=== PATIENT | male | born 1950 | race Caucasian/White ===

== ENCOUNTER 2018-08-13 19:11 | Inpatient (IN) | payer MEDICARE, OTHER ==
[~2018-08-13] VITALS: Ht 175.3 cm; Wt 87.1 kg
--- NOTE | 2018-08-13 19:29 | NUR ---
BIB RA860 & [employer] OFF[employer]ERS, ETOH, VIOLENT, VERBALY ABUSIVE & PLACED ON HOLD. PT IS UNCOOPERATIVE. HE IS AOX3, AMB, VSS, RR EVEN AND UNLABORED. SKIN INTACT AND NO ACUTE DISTRESS NOTED. READY FOR EVAL.
[2018-08-13 20:19] LABS: BASOPHILS # (AUTO) 0.1 /CMM (0.0-0.2); BASOPHILS % (AUTO) 0.7 % (0.0-2.0); EOSINOPHILS % (AUTO) 0.1 % (0.0-6.0); HEMATOCRIT 56 % (39-51); LYMPHOCYTES # (AUTO) 1.3 /CMM (0.8-4.8); LYMPHOCYTES % (AUTO) 15.7 % (20.0-44.0); MEAN CORPUSCULAR HGB CONC 34 g/dl (31.0-36.0); MEAN CORPUSCULAR VOLUME 94 fL (80-96); MONOCYTES # (AUTO) 0.5 /CMM (0.1-1.30); MONOCYTES % (AUTO) 6.6 % (2.0-12.0); NEUTROPHILS # (AUTO) 6.4 /CMM (1.8-8.9); NEUTROPHILS % (AUTO) 76.9 % (43.0-81.0); PLATELET COUNT (AUTO) 243 /CMM (150-450); RED BLOOD CELL COUNT(AUTO) 5.99 MIL/uL (4.5-6.0); WHITE BLOOD COUNT (AUTO) 8.3 K/uL (4.3-11.0)
[2018-08-13 20:20] LABS: HEMOGLOBIN 19.3 g/dL (13.5-17.5)
--- NOTE | 2018-08-13 20:22 | NUR ---
DR HANNA CANCELLED URINE ORDER
[2018-08-13 20:30] LABS: CALCIUM, SERUM 8.9 mg/dL (8.5-10.1); CARBON DIOXIDE 17 mmol/L (21-32); CHLORIDE 104 mmol/L (98-107); CREATININE 0.9 mg/dL (0.6-1.3); GLUCOSE 117 mg/dL (74-106); POTASSIUM 3.5 mmol/L (3.5-5.1); SODIUM SERUM 142 mmol/L (136-145); UREA NITROGEN, BLOOD 10 mg/dL (7-18)
[2018-08-13] MEDS ORDERED: LORAZEPAM 1 MG TABLET PO ONE (20:30)
[2018-08-13] MEDS ORDERED: LORAZEPAM 1 MG TABLET ONE (20:31)
[2018-08-13 20:37] LABS: ALANINE AMINOTRANSFERASE 30 U/L (12-78); ALBUMIN 4.1 g/dL (3.4-5.0); ALCOHOL, BLOOD 322 mg/dL (0-0); ALKALINE PHOSPHATASE 92 U/L (46-116); ASPARTATE AMINOTRANSFERASE 29 U/L (15-37); BILIRUBIN,DIRECT 0.1 mg/dL (0.0-0.2); BILIRUBIN,TOTAL 0.5 mg/dL (0.2-1.0); SALICYLATE 4.6 mg/dL (2.8-20.0); TOTAL PROTEIN, SERUM 7.6 g/dL (6.4-8.2)
[2018-08-13 20:38] LABS: ACETAMINOPHEN < 2 ug/ml (10-30)
[2018-08-13 20:57] LABS: BASOPHILS % (MANUAL) 0 % (0.0-2.0); EOSINOPHILS % (MANUAL) 0 % (0-4); LYMPHOCYTES % (MANUAL) 15 % (16-48); MONOCYTES % (MANUAL) 4 % (0-11.0); NEUTROPHILS % (MANUAL) 79 (42-76)
--- NOTE | 2018-08-13 20:57 | NUR ---
PT'S , DR. MARIAMA BARRIGA, CALLED AND IS SPEAKING TO DR. HANNA.
--- NOTE | 2018-08-13 21:00 | NUR ---
PT CONTINUES TO REMOVE MONITOR DEVICES. UNABLE TO GET VITALS
--- NOTE | 2018-08-13 21:45 | NUR ---
PT SITTING QUIETLY IN BED. NO COMPLAINTS AT THIS TIME. VSS. WILL CONT TO MONITOR.
--- NOTE | 2018-08-13 22:04 | NUR ---
JOSUÉ OSTEOPATHIC RESIDENT AT BEDSIDE FOR EVAL
--- NOTE | 2018-08-13 23:24 | NUR ---
PT IS GOING TO [facility] RM 217, ADMITTING DEDE/JANETT. DX: SI, 7310 - DTS & DTO
--- NOTE | 2018-08-13 23:46 | NUR ---
REPORT GIVEN TO JAMILA ZAVALA FOR 217
[2018-08-14 00:30] VITALS: BP 140/93
--- NOTE | 2018-08-14 00:55 | NUR ---
ADMITTED DROM SO/ER, INITIALLY CAME FROM HOME. CALLED THE POLICE AND WAS BROUGHT TO ER FOR INTOXICATION. PATIENT ADMITTED ON 5150 HOLD FOR DTO/DTS. CAME TO THE UNIT AROUND 0030 VIA GURNEY ACCOMPANIED BY 1 MALE ER STAFF. PLACED PATIENT IN THE ROOM. PATIENT IS CALM, COOPERATIVE, THOUGHT PROCESS INTACT, POOR JUDGEMENT AND POOR INSIGHT. INITIATES INTERACTION, APPROPRIATE. A/O X4. PROVIDES PERTINENT INFORMATIONS. REFUSED FLU AND PNEUMONIA VACCINES, MAKES HIM SICK. PATIENT IS AMBULATORY/STEADY GAIT. GEN. BODY ASSESSMENT DONE/SKIN CLEAR. BELONGINGS WERE INVENTORIED AND CHECKED FOR CONTRABAND. PATIENT IS UNDER THE PSYCHIATRIC CARE OF DR. AGUAYO, MEDICAL CARE OF DR. ERICKSON Mckeon. PATIENT STATED THAT HE IS NOT TAKING ANY REGULAR MEDS AT HOME. BED LOCKED AND PLACED ON LOWEST POSITION FOR SAFETY. WILL CONTINUE TO MONITOR Q 15 MINS. TO MAINTAIN SAFETY.
[2018-08-14] MEDS ORDERED: ZOLPIDEM TARTRATE 5 MG TABLET PO PRN (01:30)
[2018-08-14] MEDS ORDERED: MAG HYDROX/AL HYDROX/SIMETH 30 ML UDC PO PRN (01:30)
[2018-08-14] MEDS ORDERED: MAGNESIUM HYDROXIDE 30 ML UDC PO PRN (01:30)
[2018-08-14] MEDS: LORAZEPAM 0.5 MG TABLET PO PRN ×4 (01:40→22:47)
[2018-08-14] MEDS: ACETAMINOPHEN 325 MG TABLET PO PRN (03:17)
--- NOTE | 2018-08-14 03:18 | NUR ---
C/O PAIN RIGHT RIB AREA, TYLENOL 650 MG TAB PO GIVEN.
[2018-08-14] MEDS ORDERED: GABA-534 PO (06:14)
[2018-08-14] MEDS ORDERED: AMLO5TAB9 PO (06:14)
[2018-08-14] MEDS ORDERED: AMOX500T2 PO (06:14)
[2018-08-14] MEDS ORDERED: MULT1CAP34 PO (06:14)
[2018-08-14] MEDS ORDERED: FOLI1TAB16 PO (06:14)
[2018-08-14] MEDS ORDERED: IBUP-1955 PO (06:14)
[2018-08-14] MEDS ORDERED: TRAZ-182 PO (06:14)
[2018-08-14] MEDS ORDERED: FLUO-120 PO (06:14)
[2018-08-14] MEDS ORDERED: PROP20TA7 PO (06:14)
--- NOTE | 2018-08-14 06:25 | NUR ---
Verified with patient list of medications in the system, discussed all meds, patient claimed that he does not take any medication on the list shown to him.
[2018-08-14 07:23] LABS: CREATININE 1.1 mg/dL (0.6-1.3)
[2018-08-14 08:00] VITALS: BP 148/104
--- NOTE | 2018-08-14 08:43 | NUR ---
rn note: patient reported of being anxious. prn ativan given.
[2018-08-14] MEDS ORDERED: CHLORDIAZEPOXIDE HCL 25 MG CAPSULE PO PRN (15:00)
[2018-08-14] MEDS ORDERED: CHLORDIAZEPOXIDE HCL 25 MG CAPSULE PO SCH (15:00)
--- NOTE | 2018-08-14 15:00 | NUR ---
Initial Discharge Instructions: Patient currently lives at home with his [[address] [place] [address]; [phone]]. Per pt, he will "go wherever my says I need to go." SW explored options of sober livings vs. residential treatment for the patient, and he seemed agreeable to this plan. Spoke with pt's , Nighat Thurston ([phone]) who reports that the patient cannot return home, as she is filing a restraining order against him. Per pt and , pt has long history of ETOH abuse, and will require rehabilitation upon discharge. SW spoke with about placement options (sober living vs residential treatment vs SNF) and was agreeable to all placements. SW will continue to collaborate with pt, family, and MD regarding most appropriate discharge plans for this patient. SW will form a safe and proper discharge plan.
[2018-08-14 16:00] VITALS: BP 156/112
[2018-08-14] MEDS: GABAPENTIN 300 MG CAPSULE PO SCH (16:16)
[2018-08-14] MEDS: PROPRANOLOL HCL 10 MG TABLET PO SCH (16:17)
--- NOTE | 2018-08-14 16:17 | NUR ---
JERILYN received a phone call from Jaz, JERILYN at [facility] stating that she will be coming tomorrow 08/15/17 to speak with pt regarding firearms at home. Per Jaz, firearms will be ceased from pts home and needs consent to enter home without a warrant by [employer].
[2018-08-14] MEDS ORDERED: SERTRALINE HCL 25 MG TABLET PO SCH (17:00)
--- NOTE | 2018-08-14 17:52 | NUR ---
RN NOTE: PATIENT ANXIOUS. PRN ATIVAN GIVEN.
[2018-08-14] MEDS: CHLORDIAZEPOXIDE HCL 25 MG CAPSULE PO SCH (19:27)
[2018-08-14 20:00] VITALS: BP 156/105
[2018-08-14] MEDS: TEMAZEPAM 7.5 MG CAPSULE PO PRN (21:02)
[2018-08-14] MEDS ORDERED: MIRTAZAPINE 15 MG TABLET PO SCH ×2 (22:00)
[2018-08-14 22:44] VITALS: BP 146/75
[2018-08-15 08:00] VITALS: BP 143/96
[2018-08-15] MEDS: GABAPENTIN 300 MG CAPSULE PO SCH ×3 (08:11→17:28)
[2018-08-15] MEDS: CHLORDIAZEPOXIDE HCL 25 MG CAPSULE PO SCH ×3 (08:12→19:45)
[2018-08-15] MEDS: PROPRANOLOL HCL 10 MG TABLET PO SCH (08:12)
[2018-08-15] MEDS: FOLIC ACID 1 MG TABLET PO SCH (08:15)
[2018-08-15] MEDS: MULTIVITAMINS,THERAGRAN 1 UDTAB TABLET PO SCH (08:15)
[2018-08-15] MEDS: AMLODIPINE BESYLATE 5 MG TABLET PO SCH (08:15)
[2018-08-15] MEDS: THIAMINE HCL 100 MG TABLET PO SCH (08:15)
[2018-08-15 08:22] LABS: CHOLESTEROL 160 mg/dL (<200); HDL CHOLESTEROL 76 mg/dL (40-60); LDL 75 mg/dL (0-99); TRIGLYCERIDES 151 mg/dL (30-150)
--- NOTE | 2018-08-15 09:58 | NUR ---
JERILYN received call from Shannen at [facility] Mental Evaluation Unit ([phone]) who was inquiring about patient's stay in the hospital. JERILYN confirmed that pt was still admitted to GPS. Per Shannen, pt still has firearms registered to him, and [facility] will need to cease the firearms. Shannen reported that her partner will be calling pt's to inquire about where the firearms are. Shannen also stated that she will be a resource to this policy writer sales in terms of connecting the patient to resources post-discharge. JERILYN will continue to collaborate with Shannen at [facility].
[2018-08-15] MEDS: SERTRALINE HCL 25 MG TABLET PO SCH (13:17)
--- NOTE | 2018-08-15 14:32 | NUR ---
Spoke with patient's , Nighat ([phone]) to discuss placement options for the patient. Per , the patient was a previous resident of the [facility] in [place] [Address: [address] [place] [address] [place] [address]; ]. gave this repairer typewriter the number of the Drawing Kiln Operator, Shashi Anderson ([phone]). JERILYN spoke with Shashi, and he stated that he was familiar with the patient, but since his change to Medicare, the patient may not be accepted. Shashi asked JERILYN to fax clinical packet to f. [phone] and they would take a look at it. JERILYN faxed packet and will continue to follow-up.
--- NOTE | 2018-08-15 14:34 | NUR ---
PT. ENDORSED TO ME FROM JAMILA JOSÉ.CURRENTLY PT. SITTING QUIETLY IN DINING RM.PLEEASANT,NO ACUTE DISTRESS AT THIS TIME.
[2018-08-15 16:00] VITALS: BP 142/96
[2018-08-15 20:00] VITALS: BP 140/99
[2018-08-15] MEDS: TEMAZEPAM 7.5 MG CAPSULE PO PRN (22:40)
[2018-08-16] MEDS: LORAZEPAM 0.5 MG TABLET PO PRN (01:46)
[2018-08-16 08:00] VITALS: BP 153/98
[2018-08-16] MEDS: THIAMINE HCL 100 MG TABLET PO SCH (09:06)
[2018-08-16] MEDS: GABAPENTIN 300 MG CAPSULE PO SCH ×3 (09:06→17:10)
[2018-08-16] MEDS: MULTIVITAMINS,THERAGRAN 1 UDTAB TABLET PO SCH (09:07)
[2018-08-16] MEDS: AMLODIPINE BESYLATE 5 MG TABLET PO SCH (09:07)
[2018-08-16] MEDS: PROPRANOLOL HCL 10 MG TABLET PO SCH (09:07)
[2018-08-16] MEDS: CHLORDIAZEPOXIDE HCL 25 MG CAPSULE PO SCH (09:07)
[2018-08-16] MEDS: FOLIC ACID 1 MG TABLET PO SCH (09:07)
--- NOTE | 2018-08-16 10:36 | NUR ---
SW called the pt's , Nighat ([phone]), and left a message on her voicemail stating that the SW received her fax of the [employer] and just informed her that the SW would like to discuss the pt's discharge plan.
--- NOTE | 2018-08-16 10:43 | NUR ---
JERILYN called [facility] and spoke to Shashi ([phone]) and he stated that if the pt is willing to agree to their conditions over the phone that the pt is accepted and they will pick him up upon discharge.
[2018-08-16] MEDS: SERTRALINE HCL 25 MG TABLET PO SCH (12:50)
--- NOTE | 2018-08-16 15:58 | NUR ---
Group Note: Group note: Pt attended a group session on 08/16/18 at 11AM discussing the topic of their psychiatric admission and a goal that they can determine for once they get discharged from the hospital. S: Pt stated that he has always been the one to take care of the people in his life and right now he is hurting because the people in his life have abandoned him. Pt stated that his major goal after he is discharged is to become sober from alcohol. O: Pt was present during the group session and was cooperative. Pt appeared to be in a euthymic mood and presented with a calm yet sad affect. Pt appeared to be comfortable and spoke very honestly throughout the group. He stated that he did not realize how much he would be willing to talk about his issues and how helpful he found the feedback to be. A: Pt understood that he has caused a lot of pain to the individuals that are in his life. He realized that the behaviors that he would partake in for years now have caused his family members to abandon him because they have utilized all of their resources and their patience. He realized that he has to help himself this time and that the changes that he will make need to be maintained. P: Pt will continue milieu treatment and medication stabilization.
[2018-08-16 16:00] VITALS: BP 136/98
[2018-08-16 20:20] VITALS: BP 151/94
[2018-08-16] MEDS: TEMAZEPAM 7.5 MG CAPSULE PO PRN (21:23)
[2018-08-17] MEDS: LORAZEPAM 0.5 MG TABLET PO PRN ×2 (01:07→22:39)
--- NOTE | 2018-08-17 01:10 | NUR ---
GPS RN NOTES PT. C/O ANXIETY , ATIVAN 1 MG PO PRN GIVEN PER PT. REQUEST ,WILL CONTINUE TO MONITOR.
[2018-08-17 08:00] VITALS: BP 129/97
[2018-08-17] MEDS: FOLIC ACID 1 MG TABLET PO SCH (08:09)
[2018-08-17] MEDS: THIAMINE HCL 100 MG TABLET PO SCH (08:10)
[2018-08-17] MEDS: MULTIVITAMINS,THERAGRAN 1 UDTAB TABLET PO SCH (08:10)
[2018-08-17] MEDS: GABAPENTIN 300 MG CAPSULE PO SCH ×3 (08:10→16:32)
[2018-08-17] MEDS: PROPRANOLOL HCL 10 MG TABLET PO SCH (08:10)
[2018-08-17] MEDS: AMLODIPINE BESYLATE 5 MG TABLET PO SCH (08:10)
[2018-08-17] MEDS: NICOTINE PATCH (21MG) 21 MG PATCH.TD24 TD SCH (08:46)
[2018-08-17] MEDS: ACETAMINOPHEN 325 MG TABLET PO PRN (11:10)
--- NOTE | 2018-08-17 11:10 | NUR ---
PT. IS COMPLAINING OF LEFT RIB PAIN AND TYLENOL PRN GIVEN. WILL CONTINUE TO MONITOR.
[2018-08-17] MEDS: SERTRALINE HCL 25 MG TABLET PO SCH (12:32)
--- NOTE | 2018-08-17 13:10 | NUR ---
CALLED DR. ANDREA TO NOTIFY ABOUT THE LEFT RIB PAIN AND AWAITNG FOR THE CALL BACK.
--- NOTE | 2018-08-17 15:08 | NUR ---
DR. ANDREA CALLED AND ORDERED LEFT SIDED RIB SERIES.
--- NOTE | 2018-08-17 15:32 | NUR ---
SW conducted a substance abuse intervention with the pt.
--- NOTE | 2018-08-17 15:33 | NUR ---
JERILYN called the pt's , Nighat ([phone]), and spoke to her about the sober living options. She stated that the pt is aware of the finances and that the [facility] would be appropriate.
--- NOTE | 2018-08-17 15:38 | NUR ---
SW spoke to the pt and provided him with a list of sober livings in the area and their pricing.
[2018-08-17 16:00] VITALS: BP 133/88
--- NOTE | 2018-08-17 16:57 | NUR ---
PT. REASSESSED AND PT. SAID PAIN IS LESSER AT THIS TIME.
[2018-08-17 20:00] VITALS: BP 143/95
[2018-08-17] MEDS: TEMAZEPAM 7.5 MG CAPSULE PO PRN (21:11)
[2018-08-18] MEDS: ACETAMINOPHEN 325 MG TABLET PO PRN (06:30)
[2018-08-18 08:00] VITALS: BP 137/93
[2018-08-18] MEDS: THIAMINE HCL 100 MG TABLET PO SCH (09:06)
[2018-08-18] MEDS: GABAPENTIN 300 MG CAPSULE PO SCH ×2 (09:06→13:45)
[2018-08-18] MEDS: FOLIC ACID 1 MG TABLET PO SCH (09:06)
[2018-08-18] MEDS: NICOTINE PATCH (21MG) 21 MG PATCH.TD24 TD SCH (09:06)
[2018-08-18] MEDS: AMLODIPINE BESYLATE 5 MG TABLET PO SCH (09:06)
[2018-08-18 09:07] VITALS: BP 137/93
[2018-08-18] MEDS: PROPRANOLOL HCL 10 MG TABLET PO SCH (09:07)
[2018-08-18] MEDS: MULTIVITAMINS,THERAGRAN 1 UDTAB TABLET PO SCH (09:07)
--- NOTE | 2018-08-18 09:09 | NUR ---
JERILYN returned a call from Shannen at [facility] Mental Evaluation Unit ([phone]) and informed her that the pt's psychiatrist has not provided a discharge date for the pt as of right now and the pt also has a probable cause hearing today meaning that the discharge will also depend on the results of that hearing. She stated that she is still currently working on the situation with the pt's firearms and will have an update on Tuesday. She requested the JERILYN to inform her when the pt is being discharged.
--- NOTE | 2018-08-18 10:00 | NUR ---
RN-CO: Patient attended/contested, the Probable Cause Hearing. The Superior Court did not find any reason to continue patient on a legal hold. There is not a probable cause to believe that he , as a result of mental disorder is a danger to others nor a danger to himself. Therefore the patient must be released. Dr Herron made aware and discontinued the hold and discharge the patient.
--- NOTE | 2018-08-18 10:12 | NUR ---
Pt was present at his probable cause hearing today and the county judge listened to the case and determined that the pt cannot be held. Pt was given the option of staying or leaving by Dr. Herron and the pt stated that he would like to be discharged today.
--- NOTE | 2018-08-18 10:14 | NUR ---
JERILYN called [facility] and spoke to Shashi ([phone]) and informed him that the pt is going to be discharged today and that he would like to be admitted to the [facility]. Shashi stated that the pt is accepted and that the drivers can pick the pt up around 2-3pm.
--- NOTE | 2018-08-18 10:15 | NUR ---
JERILYN called the pt's , Nighat ([phone]), and informed her about the pt's discharge to the [facility] today around 2-3PM.
--- NOTE | 2018-08-18 10:22 | NUR ---
JERILYN called from Shannen at [facility] Mental Evaluation Unit ([phone]) and informed her that the pt is being discharged today and will be discharged to [facility].
--- NOTE | 2018-08-18 10:45 | NUR ---
RN-CO:Patient denied suicidal and homicidal ideation. Denied auditory and visual hallucination. Calm and cooperative to care. Medically cleared for discharge. No acute distress noted.Seen and examined by Dr Vergara and Dr Herron( covering for Dr Bonilla) Both wrote prescription.All belongings will be given back to the patient.
--- NOTE | 2018-08-18 10:58 | NUR ---
RN-CO: Nighat [phone] was informed of the discharge.
[2018-08-18] MEDS: SERTRALINE HCL 25 MG TABLET PO SCH (13:45)
--- NOTE | 2018-08-18 14:20 | NUR ---
GPS buffet attendant Note Patient was discharged at 1420 via facility lyft driver to [facility] located at [address] [place] [address]; . Patient denies any auditory or any hallucinations, denies suicidal and homicidal ideations at this time. Patient is alert and oriented x4, able to make needs known. Respirations even and unlabored on room air, vital signs stable. Medically cleared for discharge via hospitalist. Ambulates with steady gait. Skin assessment and discharge photos refused, educated patient on importance of skin assessment. Continued refusal. ID band removed from patient. Discharge instructions and Exitcare provided to patient, verbalized understanding and acknowledged via signature on forms, copies placed in chart. Patient left with all personal belongings and medications, acknowledged via signature on belongings form, copy placed in chart. SW notified patient's Nighat of discharge. Pts mood was euthymic with congruent affect. Pts denied suicidal/homicidal ideations and denied visual/auditory hallucinations. Pt will address his substance use and continue psychiatric treatment with Psychiatrist: Dr. Monster Suarez located at [address], [place], [place] [id number] and be under the care of Nuclear Weapons Custodian: Dr. Le Mcdnaiels located at [address], [place] [address]; .
--- NOTE | 2018-08-18 15:15 | NUR ---
Discharge Note: Pt was discharged to the [facility] located at [address], [place] [address]; . Pts , Nighat ([phone]), was informed of the discharged and accepted it. Pt was picked up by a cdl company driver from the facility around 2-3PM. Upon discharge, the pt was in a euthymic mood and presented with a euphoric affect. Pt stated, I am so happy to be discharging and I know that I am ready. Pt denied both suicidal and homicidal ideation upon discharge as well as both auditory and visual hallucinations. Pt was given substance abuse referrals upon discharge even though he was discharged to a treatment center. Pt will be under the care of psychiatrist, Dr. Monster Suarez, located at [address] [facility] [address] [facility] [address]; [place] [address]; and vp hr diversity, Dr. Le Mcdaniels, located at [address], [place] [address]; . Substance Abuse Referrals: [facility] [address] [place] [address] Tel. [facility] [address] [place] Provider Mental Health Treatment Tele-dermatology HIV Services Telemedicine [facility] [place] [address] [place] [address] [facility] [address] [place] [address]
--- NOTE | 2018-09-01 10:49 | NUR ---
15 Day Substance Abuse Follow Up: Pt is exempt from the substance abuse follow up because he was discharged to [facility] which is a residential treatment center for substance abuse.
== END 2018-08-18 14:20 | DRG 885 ==
LOC: ER 19:12 → GPS 23:25
PROVIDERS: ADMIT Psychiatry & Neurology Psychosomatic Medicine; ATTEND Nurse Practitioner Acute Care
DX: F33.2 Major depressive disorder, recurrent severe without psychotic features (principal); F10.231 Alcohol dependence with withdrawal delirium; Y90.8 Blood alcohol level of 240 mg/100 ml or more; E66.9 Obesity, unspecified; Z68.28 Body mass index [BMI] 28.0-28.9, adult; I10 Essential (primary) hypertension; F17.210 Nicotine dependence, cigarettes, uncomplicated
CPT/HCPCS: 36415; 71100-TC; 80048-TC; 80061-TC; 80076-TC; 82565-TC; 85025-TC; 87081-TC; G0480

== ENCOUNTER 2020-06-26 09:20 | Emergency (ER) | payer MEDICARE, OTHER ==
[~2020-06-26] VITALS: Ht 177.8 cm; Wt 90.7 kg
[~2020-06-26 09:20] MED LIST: AMLO-212 PO; FOLI1TAB16 PO; GABA-534 PO; IBUP-1955 PO; MULT1CAP34 PO; PROP20TA7 PO
--- NOTE | 2020-06-26 09:20 | NUR ---
PT BIB 878 FROM [facility] C/O R HIP PAIN S/P GLF 2 WEEKS AGO. PT ABLE TO WALK. PT IS AAOX4, NOT IN RESPIRATORY DISTRESS, V/S STABLE, KEPT RESTED AND COMFORTABLE. WILL CONTINUE TO MONITOR.
--- NOTE | 2020-06-26 09:28 | NUR ---
SEEN AND EXAMINED BY .
--- NOTE | 2020-06-26 09:31 | NUR ---
SUPERVISOR LITHARGE AT BEDSIDE FOR XRAY.
--- NOTE | 2020-06-26 09:56 | NUR ---
Patient discharged in custody in stable condition. Written and verbal after care instructions given. Patient verbalizes understanding of instruction.
[2020-06-26 09:57] VITALS: BP 133/84
== END 2020-06-26 09:59 ==
LOC: ER 09:23
DX: S00.83XA Contusion of other part of head, initial encounter (principal); M25.552 Pain in left hip; Z79.899 Other long term (current) drug therapy; W18.39XA Other fall on same level, initial encounter; Y93.89 Activity, other specified; Y92.89 Other specified places as the place of occurrence of the external cause; Y99.8 Other external cause status
CPT/HCPCS: 70450-TC; 73502

== ENCOUNTER 2020-12-22 20:12 | Emergency (ER) | payer MEDICARE, OTHER ==
[~2020-12-22] VITALS: Ht 175.3 cm; Wt 83.9 kg
[2020-12-22 20:21] VITALS: BP 137/97
--- NOTE | 2020-12-22 21:09 | NUR ---
Nighat () can be called when ready for discharge for transport home
--- NOTE | 2020-12-22 21:39 | NUR ---
Patient discharged to home in stable condition. Written and verbal after care instructions given. Patient verbalizes understanding of instruction.
== END 2020-12-22 21:51 | disposition home or self-care (01) ==
LOC: ER 20:14
DX: S00.83XA Contusion of other part of head, initial encounter (principal); F17.200 Nicotine dependence, unspecified, uncomplicated; Z79.899 Other long term (current) drug therapy; V19.88XA Pedal cyclist (driver) (passenger) injured in other specified transport accidents, initial encounter; Y93.89 Activity, other specified; Y92.89 Other specified places as the place of occurrence of the external cause; Y99.8 Other external cause status
CPT/HCPCS: 70450-TC; 70486-TC

== ENCOUNTER 2020-12-24 12:48 | Inpatient (IN) | payer MEDICARE ==
[~2020-12-24] VITALS: Ht 175.3 cm; Wt 80.8 kg
--- NOTE | 2020-12-24 13:00 | NUR ---
[id number]/pd frm home, called PD asking them to "shoot him. Also, do suboxone and alcohol withdrawal. Alert and oriented x3. Denies pain. In room air and denies SOB. Respiration regular and unlabored. Attached to the monitor. Warm blanket provided for comfort. Will continue to monitor the patient.
[2020-12-24 13:15] LABS: BASOPHILS % (AUTO) 0.4 % (0.0-2.0); EOSINOPHILS % (AUTO) 0.1 % (0.0-6.0); HEMATOCRIT 50 % (39-51); HEMOGLOBIN 17.1 g/dL (13.5-17.5); LYMPHOCYTES # (AUTO) 1.7 /CMM (0.8-4.8); LYMPHOCYTES % (AUTO) 30.8 % (20.0-44.0); MEAN CORPUSCULAR HGB CONC 34 g/dl (31.0-36.0); MEAN CORPUSCULAR VOLUME 89 fL (80-96); MONOCYTES # (AUTO) 0.7 /CMM (0.1-1.30); MONOCYTES % (AUTO) 11.9 % (2.0-12.0); NEUTROPHILS # (AUTO) 3.2 /CMM (1.8-8.9); NEUTROPHILS % (AUTO) 56.8 % (43.0-81.0); PLATELET COUNT (AUTO) 160 /CMM (150-450); RED BLOOD CELL COUNT(AUTO) 5.65 MIL/uL (4.5-6.0); WHITE BLOOD COUNT (AUTO) 5.6 K/uL (4.3-11.0)
[2020-12-24 13:23] LABS: CALCIUM, SERUM 8.6 mg/dL (8.5-10.1)
[2020-12-24 13:29] LABS: ALBUMIN 3.8 g/dL (3.4-5.0); BILIRUBIN,DIRECT 0.2 mg/dL (0.0-0.2); BILIRUBIN,TOTAL 0.9 mg/dL (0.2-1.0); TOTAL PROTEIN, SERUM 7.2 g/dL (6.4-8.2)
--- NOTE | 2020-12-24 13:35 | NUR ---
unable to provide urine sample at this time. urinal provided.
[2020-12-24 14:40] LABS: BILIRUBIN,URINE Negative (NEGATIVE); COLOR,URINE YELLOW (YELLOW); LEUKOCYTE ESTERASE ,URINE Negative (NEGATIVE); NITRITE, URINE Negative (NEGATIVE); PH,URINE 7.5 (5.0-8.0); PROTEIN,URINE 30 mg/dl (NEGATIVE); UGLUCOSE Negative (NEGATIVE)
--- NOTE | 2020-12-24 14:42 | NUR ---
URINE COLLECTED AND SENT TO THE LAB
--- NOTE | 2020-12-24 14:51 | NUR ---
COVID SWAB DONE AND SENT TO THE LAB
[2020-12-24 15:01] LABS: BACTERIA,URINE None seen /HPF (None Seen); RBC,URINE 0-2 /HPF (0-2); SQUAMOUS EPITHELIAL CELL,UR None Seen /HPF (None Seen); WBC,URINE 0-2 /HPF (0-3)
--- NOTE | 2020-12-24 15:09 | NUR ---
311-1 THE PATIENT`S FAMILY MD IS DR HERNANDEZ
--- NOTE | 2020-12-24 15:31 | NUR ---
report given to nurse lyons
[2020-12-24] MEDS ORDERED: BUPR2TAB3 PO (15:36)
[2020-12-24] MEDS ORDERED: DEXT15CA PO (15:36)
--- NOTE | 2020-12-24 15:45 | NUR ---
Executive Housekeeper consult: account services manager consult requested for suicidal ideation with a plan and substance use. Patient is 70-year-old, male. Per chart, patient was brought in by ambulance and [employer] on 12/24/20 for suicidal ideation and asked [employer] to shoot him. SW met with patient at his bedside on the emergency department. Patient was alert and oriented x4. Patient was resting and on restraints. Patient presented disheveled. Patient stated that he is currently living with his spouse, Nighat, , at [address] [place] [address]; [phone]. SW assessed patients current suicidal ideation and patient stated that he is currently feeling suicidal with no current plan but mentioned that he previously asked [employer] to shoot him. SW asked patient if he would consider going voluntary to an inpatient psychiatric hospital for treatment. Patient agreed with this plan. RN Tiffany notified SW at the bedside that the patient will be admitted to the hospital medically. Executive Housekeeper will coordinate with nursing and follow up with this referral, as needed. SW assessed patients history of substance use and patient stated that he has a history of opioid use but has not used the substance for years. Patient stated that he has been taking Buprenorphine, prescribed by patients PCP, Dr. An Garcia ([address] [place] [address]; [phone]) Patient stated that he currently drinks alcohol daily and stated that his frequency was around the clock. SW assessed patients history of mental illness and patient stated that he has a history of ADD. Patient denies hallucinations or delusions. Patient stated that his current source of income is SSI and pension. Patient is independent with his ADLs and reported that he is ambulatory. Patient stated that he has adequate social support. SW offered patient substance use resources. Patient declined the resources. Per RN Tiffany, patient will be admitted medically. PLAN: Patient will be admitted medically. No further SS intervention at this time, however, SW will remain available as needed.
[2020-12-24] MEDS ORDERED: MIRT15TA7 PO (16:14)
[2020-12-24 16:25] VITALS: BP 127/68
--- NOTE | 2020-12-24 16:33 | NUR ---
the patient is transfered to [facility] in stable condition and per acls policy.
[2020-12-24] MEDS ORDERED: ACETAMINOPHEN 325 MG TABLET PO PRN (17:00)
[2020-12-24] MEDS ORDERED: POTASSIUM CHLORIDE 20 MEQ TAB.PRT.SR PO ONE (17:00)
[2020-12-24] MEDS ORDERED: ONDANSETRON HCL/PF 4 MG/2 ML VIAL IVP PRN (17:00)
[2020-12-24] MEDS ORDERED: MAGNESIUM HYDROXIDE 30 ML UDC PO PRN (17:00)
[2020-12-24] MEDS ORDERED: Z GUARD REMEDY 2 OZ OINT TP PRN (17:00)
[2020-12-24] MEDS ORDERED: ZOLPIDEM TARTRATE 5 MG TABLET PO PRN (17:00)
[2020-12-24] MEDS: IV NS 0.9% 1,000 ML IV PRN (17:18)
[2020-12-24] MEDS: PANTOPRAZOLE 40 MG TABLET.DR PO SCH (17:25)
[2020-12-24] MEDS: THIAMINE HCL 100 MG TABLET PO SCH (17:25)
[2020-12-24] MEDS: FOLIC ACID 1 MG TABLET PO SCH (17:26)
[2020-12-24] MEDS: CHLORDIAZEPOXIDE HCL 25 MG CAPSULE PO SCH (17:27)
--- NOTE | 2020-12-24 17:30 | NUR ---
OPERATIONS EXECUTIVE ADMITTING NOTES PT ADMITTED TO UNIT [facility]IA [facility] AT 1625 ACCOMPANIED BY Suzan MARINO DERICK. PT IS A/O X3-4. ABLE TO MAKE NEEDS KNOWN. DENIES PAIN OR ANY DISCOMFORT AT THIS TIME AT THIS TIME. PT ORIENTED TO STAFF AND UNIT. V/S TAKEN AND RECORDED. ON ROOM AIR, TOLERATING WELL WITH NO SOB NOTED. PT PLACED ON EXTERNAL CARDIAC TELEMONITOR WITH NSR TO TACHYRDIA WITH PVC'S, HR B/W 80-110, NO C/O CARDIAC DISTRESS VOICED. PT WITH IV ACCESS ON LFA G#18 INTACT AND PATENT, IVF OF NS STARTED AT 100ML/HR, NO S/S OF INFILTRATIONS AT SITE NOTED. PHOTOS OF SKIN ISSUES TAKEN AND FILED IN HIS CHART. SAFETY PRECAUTIONS ENFORCED: PLACED IN LOWEST LOCKED POSITION WITH SIDE-RAILS UP X2, CALL LIGHT W/IN EASY REACH. WILL CONTINUE TO MONITOR PT.
--- NOTE | 2020-12-24 18:51 | NUR ---
INVENTORY CONTROLLER CLOSING NOTES PATIENT IN BED, AWAKE, A&O X 3-4. DENIES PAIN OR ANY DISCOMFORT AT THIS TIME AT THIS TIME. ON ROOM AIR, TOLERATING WELL WITH NO SOB NOTED. PT ON EXTERNAL CARDIAC TELEMONITOR WITH NSR TO TACHYRDIA, HR B/W 80-120, NO C/O CARDIAC DISTRESS VOICED. IV ACCESS ON LFA G#18 INTACT AND PATENT, IVF OF NS AT 100ML/HR,INFUSING WELL, NO S/S OF INFILTRATIONS AT SITE NOTED. SAFETY PRECAUTIONS MAINTAINED AND OBSERVED DURING THE SHIFT: BED PLACED IN LOWEST LOCKED POSITION WITH SIDE-RAILS UP X2, CALL LIGHT W/IN EASY REACH. SITTER WILL BE DESIGNATED FOR TONIGHT ENDORSED BY CHARGE NURSE. ENDORSED TO NIGHT NURSE FOR CONTINUITY OF CARE.
[2020-12-24 20:00] VITALS: BP 134/85
--- NOTE | 2020-12-24 20:06 | NUR ---
MS/TELE/RN RECEIVED PATIENT LYING IN BED AWAKE, ALERT ORIENTED, CALM AND COMFORTABLE, NO C/O PAIN, NO DISTRESS NOTED, SITTER AT BEDSIDE FOR SAFETY, WILL MONITOR.
[2020-12-24] MEDS: HYDROCODONE/APAP 5/325MG TABLET PO PRN (21:57)
[2020-12-25] MEDS: CHLORDIAZEPOXIDE HCL 25 MG CAPSULE PO SCH ×3 (01:10→16:21)
[2020-12-25 01:40] VITALS: BP 129/88
[2020-12-25 01:45] VITALS: BP 134/85
[2020-12-25] MEDS: LORAZEPAM INJ 2 MG/ML VIAL IV PRN (02:58)
--- NOTE | 2020-12-25 03:07 | NUR ---
MS/TELE/RN PATIENT IS VERY RESTLESS, UNABLE TO STAY IN BED, ATIVAN 1 MG IVP WAS GIVEN ORDERED, WILL MONITOR.
--- NOTE | 2020-12-25 03:40 | NUR ---
MS/TELE/RN PATIENT IS SLEEPING AT THIS TIME, APPEAR COMFORTABLE, NO SIGNS OF DISTRESS NOTED, SITTER AT BEDSIDE, WILL CONTINUE TO MONITOR.
[2020-12-25] MEDS: IV NS 0.9% 1,000 ML IV PRN ×2 (04:21→17:59)
[2020-12-25 06:11] LABS: BASOPHILS % (AUTO) 0.4 % (0.0-2.0); EOSINOPHILS % (AUTO) 0.1 % (0.0-6.0); HEMATOCRIT 42 % (39-51); HEMOGLOBIN 14.4 g/dL (13.5-17.5); LYMPHOCYTES # (AUTO) 1.1 /CMM (0.8-4.8); LYMPHOCYTES % (AUTO) 16.1 % (20.0-44.0); MEAN CORPUSCULAR HGB CONC 34 g/dl (31.0-36.0); MEAN CORPUSCULAR VOLUME 90 fL (80-96); MONOCYTES # (AUTO) 0.7 /CMM (0.1-1.30); MONOCYTES % (AUTO) 9.7 % (2.0-12.0); NEUTROPHILS # (AUTO) 5.1 /CMM (1.8-8.9); NEUTROPHILS % (AUTO) 73.7 % (43.0-81.0); PLATELET COUNT (AUTO) 103 /CMM (150-450); RED BLOOD CELL COUNT(AUTO) 4.67 MIL/uL (4.5-6.0)
[2020-12-25 06:14] LABS: MAGNESIUM 1.8 mg/dL (1.8-2.4); POTASSIUM 2.9 mmol/L (3.5-5.1)
--- NOTE | 2020-12-25 06:47 | NUR ---
MS/TELE/RN PATIENT IS AWAKE AT THIS TIME, CALM AND COMFORTABLE, NO DISTRESS NOTED, SITTER AT BEDSIDE. ALL NEEDS ATTENDED AT THIS TIME, WILL CONTINUE TO MONITOR.
--- NOTE | 2020-12-25 07:28 | NUR ---
MS/TELE/RN PER SITTER, PATIENT HAD BM X 8 DURING THE SHIFT, ENDORSED TO JAMILA COLÓN, TO COLLECT AND SEND STOOL FOR C DIFF IF THE PATIENT WILL HAVE LOOSE BM IN HIS SHIFT.
--- NOTE | 2020-12-25 07:37 | NUR ---
MS RN OPENING NOTES RECEIVED IN BED, AWAKE, ALERT AND ORIENTED X 3-4. WITH IVF OF NS1L AT 100 CC/HOUR INFUSING WELL ON PATIENT'S RFA G#18, PATENT AND INTACT, NO S/SX OF INFILTRATION NOTED. NO COMPLAINTS OF PAIN OR DISCOMFORT AT THIS TIME. 1:1 SITTER PRESENT AT BEDSIDE. SAFETY PRECAUTIONS OBSERVED AND MAINTAINED: BED ON LOWEST LOCKED POSITION, SIDE RAILS UP X 2. KEPT CALL LIGHT WITHIN EASY REACH. WILL CONTINUE TO MONITOR PATIENT'S CURRENT STATUS
[2020-12-25 08:00] VITALS: BP 150/88
[2020-12-25] MEDS: PANTOPRAZOLE 40 MG TABLET.DR PO SCH (08:06)
[2020-12-25] MEDS: THIAMINE HCL 100 MG TABLET PO SCH (08:22)
[2020-12-25] MEDS: FOLIC ACID 1 MG TABLET PO SCH (08:22)
[2020-12-25] MEDS ORDERED: POTASSIUM CHLORIDE 20 MEQ TAB.PRT.SR PO ONE (09:00)
--- NOTE | 2020-12-25 09:36 | NUR ---
RN NOTES POTASSIUM RESULT OF 2.9 RELAYED TO DNP. RECEIVED POTASSIUM CORRECTION ORDER FROM DNP. KDUR 60 MG P.O GIVEN ORDERED.
[2020-12-25] MEDS: SERTRALINE HCL 25 MG TABLET PO SCH (13:17)
--- NOTE | 2020-12-25 15:06 | NUR ---
RN NOTES PATIENT HAD 5-6 TIMES BOWEL MOVEMENT, SOFT BUT NOT WATERY IN CONSISTENCY, DNP CARLTON MADE AWARE, NO NEW ORDERS MADE.
[2020-12-25] MEDS: HYDROCODONE/APAP 5/325MG TABLET PO PRN ×2 (15:17→20:34)
--- NOTE | 2020-12-25 15:17 | NUR ---
RN NOTES PATIENT C/O OF ABDOMINAL PAIN, CHARACTERIZED ACHING WITH PAIN SCALE OF 6/10. PRN NORCO 5/325 1 TABLET BY MOUTH GIVEN ORDERED. WILL CONTINUE TO MONITOR AND REASSESS PATIENT.
[2020-12-25 16:00] VITALS: BP 155/94
--- NOTE | 2020-12-25 17:52 | NUR ---
MS RN CLOSING NOTES PATIENT IN BED AWAKE AND RESTING AT MODERATE HIGH BACKREST POSITION AT THIS TIME WITH 1:1 SITTER AT BEDSIDE. A/O X 3-4. ABLE TO MAKE NEEDS KNOWN. ON ROOM AIR, TOLERATING WELL WITH NO SOB NOTED.IVF OF NS @ 100 ML/HOUR INFUSING WELL TO RFA G#18, NO S/SX OF INFILTRATIONS NOTED. ALL DUE NURSING CARE DONE. SAFETY PRECAUTIONS OBSERVED AND MAINTAINED: BED ON LOWEST LOCKED POSITION, SIDE-RAILS UP X 2. KEPT CALL LIGHT WITHIN EASY REACH. WILL ENDORSE CONTINUITY OF CARE TO ARMATURE WINDER REPAIRER NURSE.
--- NOTE | 2020-12-25 19:30 | NUR ---
MS RN NOTES RECEIVED SITTING ON EDGE OF BED,A/O X4,BREATHING EASY,NO SOB,IVF NS AT 100MLHR RATE IN PROGRESS ON RIGHT FORE ARM VIA IV PUMP.SITE PATENT.AMBULATE TO THE RESTROOM WITH STEADY GAIT.DENIES DISCOMFORTS AT THE MOMENT.SITTER AT BEDSIDE FOR SAFETY, SI IDEATION PRIOR TO ADMISSION.CALL LIGHT IN REACH,NEEDS ANTICIPATED.
[2020-12-25 20:00] VITALS: BP 140/68
--- NOTE | 2020-12-25 20:34 | NUR ---
MS RN NOTES PAIN MANAGEMENT C/O PAIN 5/10 ON PAIN SCALE RIGHT GROIN,NORCO 5/325MG,1 TAB GIVEN PO FOR MODERATE PAIN.
--- NOTE | 2020-12-25 22:44 | NUR ---
MS RN NOTES C/O INSOMNIA,AMBIEN 5MG PO GIVEN PER PATIENT REQUEST.
[2020-12-26] MEDS: CHLORDIAZEPOXIDE HCL 25 MG CAPSULE PO SCH ×3 (01:19→16:51)
--- NOTE | 2020-12-26 03:00 | NUR ---
MS RN NOTES SOUND ASLEEP,KEPT WARM AND COMFORTABLE.SITTER AT BEDSIDE.
[2020-12-26] MEDS: IV NS 0.9% 1,000 ML IV PRN (05:16)
[2020-12-26 06:04] LABS: CALCIUM, SERUM 8.6 mg/dL (8.5-10.1); CREATININE 0.9 mg/dL (0.6-1.3); MAGNESIUM 1.9 mg/dL (1.8-2.4); PHOSPHORUS 2.5 mg/dL (2.5-4.9); POTASSIUM 3.1 mmol/L (3.5-5.1)
[2020-12-26 06:06] LABS: BASOPHILS % (AUTO) 0.3 % (0.0-2.0); EOSINOPHILS % (AUTO) 1.8 % (0.0-6.0); HEMATOCRIT 41 % (39-51); HEMOGLOBIN 13.9 g/dL (13.5-17.5); LYMPHOCYTES # (AUTO) 0.9 /CMM (0.8-4.8); MEAN CORPUSCULAR HGB CONC 34 g/dl (31.0-36.0); MEAN CORPUSCULAR VOLUME 90 fL (80-96); MONOCYTES # (AUTO) 0.5 /CMM (0.1-1.30); MONOCYTES % (AUTO) 6.5 % (2.0-12.0); NEUTROPHILS # (AUTO) 6.4 /CMM (1.8-8.9); NEUTROPHILS % (AUTO) 80.4 % (43.0-81.0); PLATELET COUNT (AUTO) 87 /CMM (150-450); RED BLOOD CELL COUNT(AUTO) 4.51 MIL/uL (4.5-6.0); WHITE BLOOD COUNT (AUTO) 7.9 K/uL (4.3-11.0)
--- NOTE | 2020-12-26 06:37 | NUR ---
MS RN NOTES LYING COMFORTABLY ON BED,PAIN MANAGEMENT EFFECTIVE,AMBULATE WITH STEADY GAIT GOING TO THE RESTROOM,STANDBY ASSIST BY RUFINO VILLARREAL.IVF IN PROGRESS,SITE PATENT RIGHT FOREARM.IN NO ACUTE DISTRESS.WILL ENDORSE TO DAY NURSE FOR ANGELICA.
--- NOTE | 2020-12-26 07:59 | NUR ---
RN OPENING NOTE RECEIVED PATIENT IN BED, AO X 4, ABLE TO RESPONDS ALL STIMULI. SKIN IS WARM TO TOUCH, KEEP CLEAN/DRY INTACT IV SITE. RESPIRATORY EVEN AND UNLABORED IN ROOM AIR. KEPT ELEVATED HOB FOR ENSURE AIR AND ASPIRATION PRECAUTION, ALSO LOWEST BED POSITION FOR SAFETY. CALL LIGHT WITHIN REACH, WILL CONTINUE TO MONITOR.
--- NOTE | 2020-12-26 08:08 | NUR ---
WOUND CARE CONSULT: PT PRESENTS WITH DRY ABRASIONS, PRESENT ON ADMISSION. A DRY LESION NOTED BELOW NOSE, PRESENT ON ADMISSION. RN TO DISCUSS WITH MD TODAY. PT IS INDEPENDENT WITH BED MOBILITY AND IS CONTINENT AT THIS TIME. WILL SEE PRN.
[2020-12-26] MEDS: FOLIC ACID 1 MG TABLET PO SCH (08:17)
[2020-12-26] MEDS: THIAMINE HCL 100 MG TABLET PO SCH (08:17)
[2020-12-26] MEDS: PANTOPRAZOLE 40 MG TABLET.DR PO SCH (08:17)
[2020-12-26 08:26] VITALS: BP 160/98
[2020-12-26 09:31] LABS: LYMPHOCYTES % (MANUAL) 10 % (16-48); MONOCYTES % (MANUAL) 7 % (0-11.0); NEUTROPHILS % (MANUAL) 83 (42-76)
[2020-12-26] MEDS ORDERED: POTASSIUM CHLORIDE 20 MEQ TAB.PRT.SR PO ONE (10:30)
--- NOTE | 2020-12-26 11:43 | NUR ---
Radio Dispatcher note: software engineer web services follow up regarding inpatient psychiatric treatment. SW met patient at his bedside in the med-surg unit. Patient denies current suicidal ideation. Patient stated that his would be speaking to Dr. Bonilla and patient prefers to continue treatment with Dr. An Garcia ([address] [place] [address]; [phone]). SW discussed inpatient psychiatric treatment as was discussed earlier on 12/24/20 and patient stated that he is unsure at this time and will discuss with his . SW will continue to remain available and follow up, as needed.
[2020-12-26] MEDS: SERTRALINE HCL 25 MG TABLET PO SCH (12:15)
--- NOTE | 2020-12-26 16:38 | NUR ---
PATIENT DISCHARGE TO [facility], GIVEN REPORT GRIFFIN/JAMILA.
[2020-12-26] MEDS: LORAZEPAM INJ 2 MG/ML VIAL IV PRN (16:52)
--- NOTE | 2020-12-26 17:45 | NUR ---
PATIENT DISCHARGED ESCORTED BY STAFF TO [facility] ROOM 213-1, MEDICALLY STABLE CONDITION.
== END 2020-12-26 17:48 | DRG 896 ==
LOC: ER 12:59 → TELE 15:39 → MED 19:02
PROVIDERS: ADMIT Nurse Practitioner Acute Care; ATTEND Nurse Practitioner Acute Care
DX: F10.231 Alcohol dependence with withdrawal delirium (principal); G92 Toxic encephalopathy; R45.851 Suicidal ideations; F33.3 Major depressive disorder, recurrent, severe with psychotic symptoms; I10 Essential (primary) hypertension; Y90.8 Blood alcohol level of 240 mg/100 ml or more; E87.6 Hypokalemia; E78.5 Hyperlipidemia, unspecified; E66.9 Obesity, unspecified; Z68.26 Body mass index [BMI] 26.0-26.9, adult; F60.9 Personality disorder, unspecified; Z20.822 Contact with and (suspected) exposure to COVID-19; F17.210 Nicotine dependence, cigarettes, uncomplicated
CPT/HCPCS: 36415; 80048-TC; 80061-TC; 80076-TC; 81001; 83735-TC; 84100-TC; 85025-TC; 87081-TC; A6403; C9803; G0378; G0480; J2060; J2405; J7030

== ENCOUNTER 2020-12-26 17:28 | Inpatient (IN) | payer MEDICARE ==
[~2020-12-26] VITALS: Ht 180.3 cm; Wt 81.6 kg
[~2020-12-26 17:28] MED LIST changes: -AMLO-212 PO; +BUPR2TAB3 PO; +DEXT15CA PO; -FOLI1TAB16 PO; -IBUP-1955 PO; +MIRT15TA7 PO; -MULT1CAP34 PO
[2020-12-26] MEDS ORDERED: LORAZEPAM 0.5 MG TABLET PO PRN (18:00)
[2020-12-26] MEDS ORDERED: MAGNESIUM HYDROXIDE 30 ML UDC PO PRN (18:00)
[2020-12-26 18:25] VITALS: BP 158/89
--- NOTE | 2020-12-26 18:57 | NUR ---
Pt. arrived in the unit via a wheel chair from Med-Surg and wheeled by staff. Pt. placed on 213 bed A. V/S taken, contraband taken and signed the admission papers. Dr. Bonilla made aware of the admission with orders. Medical doctor reconciled the meds. Will endorse to the incoming nurse for the completion of the admission.
[2020-12-26] MEDS ORDERED: Z GUARD REMEDY 4 OZ OINT TP PRN (19:00)
[2020-12-26 19:30] VITALS: BP 169/91
[2020-12-26] MEDS: CHLORDIAZEPOXIDE HCL 25 MG CAPSULE PO SCH (19:45)
--- NOTE | 2020-12-26 19:50 | NUR ---
[id number] ADMITTED A 70 Y/O MALE PATIENT FROM [facility] ON 5150 FOR DTS. PER HOLD, PATIENT IS A & O. HE IS DEPRESSED & MANIPULATIVE. WHILE AT THE MOMENT HE DENIED SI, HE WAS VERY CLEAR IN CALLING 911 TO C/O SI. HE HAS POOR INSIGHT & IMPULSE CONTROL. AT TIMES HE IS DISORGANIZED. GIVEN THE FACT THAT THE PATIENT IS MANIPULATIVE & NOT FORTH COMING I BELIEVE HE IS A DANGER TO HIMSELF. UPON FACE TO FACE ASSESSMENT PATIENT IS A/O X 2-3, DISORGANIZED, FORGETS AT TIMES, REFUSES TO ANSWER QUESTIONS & WANTS TO REST, TIRED. PROVIDED MINIMAL INFORMATION. RAMBLES AT TIMES. AMBULATORY/UNSTEADY GAIT. PATIENT DENIES SI/HI AT THIS TIME, STATED," I AM NOT SUICIDAL, MY IS." PATIENT SIGN ALL ADMISSION PAPERS WITH AM RN AND WAS COOPERATIVE AT THAT TIME. DR. AGUAYO ( PSYCHIATRIST) AND ANABEL ( AIRCRAFT ENGINE CYLINDER MECHANIC) WAS BOTH MADE AWARE WITH THE ADMISSION. PATIENT'S RIGHT BOOKLET WAS GIVEN TO THE PATIENT. PATIENT WAS ORIENTED IN THE UNIT AND UNIT POLICIES. MRSA WAS COLLECTED AT [facility] & RESULTED NEGATIVE ON 12/26/20. CONTRABAND DONE. FULL BODY ASSESSMENT DONE BY AM RN & PICTURES WERE TAKEN. BED IN LOW LOCKED POSITION. BED ALARM ON. WILL CONTINUE TO MONITOR THE PATIENT FOR Q 15 MIN FOR SAFETY, MOOD & BEHAVIOR.
[2020-12-26 20:19] VITALS: BP 169/91
--- NOTE | 2020-12-26 20:30 | NUR ---
RN NOTE PATIENT'S MARIAMA BARRIGA CALLED & NOTIFIED MARIAMA ABOUT PATIENT'S ADMISSION AT [facility] UNIT IN ROOM 213-1 & IS ON 5150 HOLD. MARIAMA ALSO SPOKE TO THE PATIENT WELL.
[2020-12-26 21:00] VITALS: BP 149/86
[2020-12-26] MEDS ORDERED: BLOOD SUGAR DIAGNOSTIC 1 EACH STRIP IN ONE (21:00)
[2020-12-26] MEDS: Z GUARD REMEDY 2 OZ OINT TP SCH (21:22)
--- NOTE | 2020-12-26 21:55 | NUR ---
RN NOTE PATIENT ASKED FOR SNACK & PREFERRED TUNA SANDWICH WITH CRANBERRY JUICE, PT. FINISHED SANDWICH, HAD JUICE & WENT BACK TO BED TO REST. WILL CONTINUE TO MONITOR.
[2020-12-26] MEDS: MAG HYDROX/AL HYDROX/SIMETH 30 ML UDC PO PRN (22:56)
--- NOTE | 2020-12-26 22:58 | NUR ---
RN NOTE: PRN MAALOX GIVEN PATIENT IS C/O INDIGESTION AFTER EATING SNACK & HAS C/O GAS, PRN MAALOX 30 ML PO ADMINISTERED. WILL CONTINUE TO MONITOR.
[2020-12-27] MEDS ORDERED: LORAZEPAM 0.5 MG TABLET PO PRN
[2020-12-27] MEDS: ACETAMINOPHEN 325 MG TABLET PO PRN ×2 (04:04→19:44)
--- NOTE | 2020-12-27 04:05 | NUR ---
RN NOTE: PAIN PATIENT C/O ABDOMINAL PAIN 10/08, REQUESTED TO TAKE TYLENOL, PRN TYLENOL 650 MG PO ADMINISTERED. WILL CONTINUE TO MONITOR.
[2020-12-27] MEDS: CHLORDIAZEPOXIDE HCL 25 MG CAPSULE PO SCH ×3 (04:41→20:44)
[2020-12-27 07:04] LABS: ALBUMIN 3.2 g/dL (3.4-5.0); CALCIUM, SERUM 9.1 mg/dL (8.5-10.1); CREATININE 0.9 mg/dL (0.6-1.3); TOTAL PROTEIN, SERUM 6.7 g/dL (6.4-8.2)
[2020-12-27 07:05] LABS: CHOLESTEROL 113 mg/dL (<200); HDL CHOLESTEROL 53 mg/dL (40-60); LDL 57 mg/dL (0-99); TRIGLYCERIDES 61 mg/dL (30-150)
[2020-12-27 08:00] VITALS: BP 145/82
[2020-12-27] MEDS: PANTOPRAZOLE 40 MG TABLET.DR PO SCH (08:06)
[2020-12-27] MEDS: THIAMINE HCL 100 MG TABLET PO SCH (08:06)
[2020-12-27] MEDS: FOLIC ACID 1 MG TABLET PO SCH (08:06)
[2020-12-27] MEDS: Z GUARD REMEDY 2 OZ OINT TP SCH ×2 (08:10→20:48)
[2020-12-27] MEDS ORDERED: POTASSIUM CHLORIDE 20 MEQ TAB.PRT.SR PO SCH (10:00)
[2020-12-27] MEDS: SERTRALINE HCL 25 MG TABLET PO SCH (12:20)
[2020-12-27 16:00] VITALS: BP 156/97
--- NOTE | 2020-12-27 19:35 | NUR ---
RN NOTE PATIENT HAD SANDWICH WITH JUICE & TOLERATED WELL. NO NAUSEA, VOMITING NOTED. WILL CONTINUE TO MONITOR.
[2020-12-27 19:41] VITALS: BP 160/96
--- NOTE | 2020-12-27 19:45 | NUR ---
RN NOTE: ELEVATED BODY TEMPERATURE PATIENT'S BODY TEMPERATURE NOTED TO BE 101.4, EXTRA CLOTHING/BLANKET/SOCKS REMOVED. PO FLUIDS ENCOURAGED. PRN TYLENOL 650 MG PO ADMINISTERED. WILL CONTINUE TO MONITOR FOR ANY OTHER CHANGE OF CONDITION.
[2020-12-27 19:50] VITALS: BP 160/96
[2020-12-27 21:00] VITALS: BP 149/88
--- NOTE | 2020-12-27 21:05 | NUR ---
RN NOTE RECHECKED PATIENT'S BODY TEMPERATURE & NOTED TO BE 99.5 ORALLY. ENCOURAGING PO FLUIDS & PATIENT IS TOLERATING WELL. NO OTHER CHANGE OF CONDITION NOTED AT THIS TIME. CONTINUING PLAN OF CARE.
--- NOTE | 2020-12-27 23:37 | NUR ---
RN NOTE PATIENT IS SLEEPING COMFORTABLY AT THIS TIME.
[2020-12-27 23:50] VITALS: BP 145/81
--- NOTE | 2020-12-27 23:50 | NUR ---
RN NOTE PATIENT'S TEMPERATURE IS 98.8 AT THIS TIME. WILL CONTINUE TO MONITOR.
[2020-12-28] MEDS: TEMAZEPAM 7.5 MG CAPSULE PO PRN (00:59)
[2020-12-28] MEDS: CHLORDIAZEPOXIDE HCL 25 MG CAPSULE PO SCH ×3 (04:57→21:25)
[2020-12-28] MEDS: MAG HYDROX/AL HYDROX/SIMETH 30 ML UDC PO PRN (06:06)
--- NOTE | 2020-12-28 06:08 | NUR ---
RN NOTE: PRN MAALOX GIVEN PATIENT IS C/O INDIGESTION & HAS C/O GAS, PRN MAALOX 30 ML PO ADMINISTERED. WILL CONTINUE TO MONITOR.
[2020-12-28] MEDS: ACETAMINOPHEN 325 MG TABLET PO PRN ×2 (06:29→20:30)
--- NOTE | 2020-12-28 06:32 | NUR ---
RN NOTE: ELEVATED BODY TEMPERATURE PATIENT'S BODY TEMPERATURE NOTED TO BE 100 F, EXTRA CLOTHING/BLANKET REMOVED. PO FLUIDS ENCOURAGED. PRN TYLENOL 650 MG PO ADMINISTERED. WILL CONTINUE TO MONITOR FOR ANY OTHER CHANGE OF CONDITION.
--- NOTE | 2020-12-28 06:55 | NUR ---
RN NOTE ADEEL RANDOLPH WAS NOTIFIED ABOUT PATIENT'S FEVER EPISODES, ADEEL ORDERED CBC, BMP, CXR STAT & UA. ORDERS NOTED & CARRIED OUT. MILK HANDLER AT PATIENT'S BED SIDE TO DRAW BLOOD. WILL ENDORSE TO AM RN TO FOLLOW UP.
[2020-12-28 07:20] LABS: BASOPHILS % (AUTO) 0.4 % (0.0-2.0); EOSINOPHILS % (AUTO) 0.3 % (0.0-6.0); HEMATOCRIT 40 % (39-51); HEMOGLOBIN 13.7 g/dL (13.5-17.5); LYMPHOCYTES # (AUTO) 0.5 /CMM (0.8-4.8); LYMPHOCYTES % (AUTO) 5.5 % (20.0-44.0); MEAN CORPUSCULAR HGB CONC 34 g/dl (31.0-36.0); MEAN CORPUSCULAR VOLUME 91 fL (80-96); MONOCYTES # (AUTO) 0.6 /CMM (0.1-1.30); MONOCYTES % (AUTO) 7.7 % (2.0-12.0); NEUTROPHILS # (AUTO) 7.2 /CMM (1.8-8.9); NEUTROPHILS % (AUTO) 86.1 % (43.0-81.0); PLATELET COUNT (AUTO) 75 /CMM (150-450); RED BLOOD CELL COUNT(AUTO) 4.42 MIL/uL (4.5-6.0); WHITE BLOOD COUNT (AUTO) 8.3 K/uL (4.3-11.0)
[2020-12-28 07:35] LABS: CALCIUM, SERUM 8.9 mg/dL (8.5-10.1); POTASSIUM 3.2 mmol/L (3.5-5.1)
[2020-12-28 07:40] LABS: CREATININE 0.9 mg/dL (0.6-1.3)
[2020-12-28 07:43] LABS: LYMPHOCYTES % (MANUAL) 4 % (16-48); MONOCYTES % (MANUAL) 7 % (0-11.0); NEUTROPHILS % (MANUAL) 89 (42-76)
[2020-12-28 08:00] VITALS: BP 153/94
[2020-12-28] MEDS: PANTOPRAZOLE 40 MG TABLET.DR PO SCH (08:29)
[2020-12-28] MEDS: THIAMINE HCL 100 MG TABLET PO SCH (08:29)
[2020-12-28] MEDS: FOLIC ACID 1 MG TABLET PO SCH (08:29)
[2020-12-28] MEDS: Z GUARD REMEDY 2 OZ OINT TP SCH ×2 (08:46→21:26)
[2020-12-28] MEDS ORDERED: POTASSIUM CHLORIDE 20 MEQ TAB.PRT.SR PO SCH (11:30)
[2020-12-28 12:16] LABS: BILIRUBIN,URINE NEGATIVE (NEGATIVE); COLOR,URINE ORANGE (YELLOW); LEUKOCYTE ESTERASE ,URINE TRACE (NEGATIVE); NITRITE, URINE POSITIVE (NEGATIVE); PROTEIN,URINE 30 mg/dl (NEGATIVE); UGLUCOSE NEGATIVE (NEGATIVE); UROBILINOGEN,URINE 0.2 EU/dL (0.2)
[2020-12-28] MEDS: SERTRALINE HCL 25 MG TABLET PO SCH (12:40)
[2020-12-28] MEDS ORDERED: POTASSIUM CHLORIDE 20 MEQ TAB.PRT.SR PO ONE (13:00)
[2020-12-28 13:20] LABS: BACTERIA,URINE Many /HPF (None Seen); SQUAMOUS EPITHELIAL CELL,UR Few /HPF (None Seen)
[2020-12-28 16:07] VITALS: BP 143/77
--- NOTE | 2020-12-28 20:30 | NUR ---
[facility]PS RN NOTE - PAIN PATIENT A/O X2-3. C/O 11/08 LEFT SIDED ABDOMINAL PAIN. ADMINISTERED TYLENOL ORDERED. WILL CONTINUE TO REASSESS FOR PAIN WITHIN 1 HOUR. Addendum: 12/28/20 at 2033 by BLUE LEE RN NINAP - 99.4
[2020-12-28 20:52] VITALS: BP 135/70
[2020-12-29] MEDS: CHLORDIAZEPOXIDE HCL 25 MG CAPSULE PO SCH ×3 (04:38→21:25)
[2020-12-29] MEDS: hydrOXYzine PAMOATE 25 MG CAPSULE PO PRN ×2 (04:38→12:16)
--- NOTE | 2020-12-29 04:38 | NUR ---
[facility]PS RN NOTE - ANXIETY PATIENT C/O FEELING ANXIOUS AND STRESSED; REQUESTED FOR MEDICATION. ADMINISTERED VISTARIL ORDERED. WILL ASSESS FOR PATIENT'S ANXIETY WITHIN 1 HOUR.
--- NOTE | 2020-12-29 06:44 | NUR ---
[facility]PS RN NOTE PATIENT SLEEPING IN BED A/OX3. BUTTOCK SKIN IS PINK, WARM TO TOUCH. SKIN IS IMPROVING. TOOK PICTURE AND PUT IN CHART. WILL ENDORSE RN TO CONTINUE TREATMENT ORDERED.
[2020-12-29] MEDS: PANTOPRAZOLE 40 MG TABLET.DR PO SCH (07:46)
[2020-12-29 08:00] VITALS: BP 156/99
[2020-12-29] MEDS: THIAMINE HCL 100 MG TABLET PO SCH (08:26)
[2020-12-29] MEDS: Z GUARD REMEDY 2 OZ OINT TP SCH ×2 (08:26→21:25)
[2020-12-29] MEDS: FOLIC ACID 1 MG TABLET PO SCH (08:26)
--- NOTE | 2020-12-29 10:47 | NUR ---
Discharge plan: The pt. currently resides at home [[address] [facility] [address]; [phone]] with his , Nighat Thurston [phone]. Per pt. he would like to be discharged to home with his under the care of his PCP: Dr. An Garcia [phone]. SW called Nighat and left voicemail with SW call back number. JERILYN will continue to collaborate with IDT to ensure safe & proper discharge planning.
--- NOTE | 2020-12-29 10:47 | NUR ---
Point of Contact: Pt. stated that his is his POA. Pt. gave SW verbal consent to call his , Dr. Nighat Thurston [phone]. SW called Nighat and left voicemail with SW contact information. SW will follow up as needed.
--- NOTE | 2020-12-29 10:48 | NUR ---
Alcohol Use Intervention: SW completed Substance Abuse Assessment and brief intervention with pt. for alcohol use. Pt. stated that when he drinks he becomes depressed, losses control and is unable to stop. Pt. stated he drinks wine & vodka daily. Pt. stated he began drinking at the age of 14 and his parents were heavy drinkers. Pt. expressed desire to quit alcohol use. Pt. expressed how alcohol use has impacted his marriage and relationships with his children, was fired from his job and the physical impact it has had on his body. SW provided pt. with emotional support, validated his feeling of depression and encouraged pt. to seek treatment. SW provided pt. with addiction resources and p. accepted them. Pt. stated he will seek treatment with resources provided. SW will be available as needed.
[2020-12-29] MEDS: SERTRALINE HCL 25 MG TABLET PO SCH (12:16)
--- NOTE | 2020-12-29 12:16 | NUR ---
RN NOTE: ANXIETY PT C/O INCREASING ANXIETY. REQUESTING PRN MEDICATION. MEDICATED WITH VISTARIL PO PRN.
--- NOTE | 2020-12-29 12:17 | NUR ---
RN NOTE: ANXIETY PT C/O INCREASING ANXIETY. REQUESTING PRN MEDICATION. PT MEDICATED WITH VISTARIL PO PRN.
[2020-12-29 16:00] VITALS: BP 100/76
[2020-12-29] MEDS: ACETAMINOPHEN 325 MG TABLET PO PRN (18:38)
--- NOTE | 2020-12-29 18:38 | NUR ---
RN NOTE: PT STATES FEELING "HOT". ORAL TEMP 99.8. MEDICATED WITH TYLENOL 650MG PO PRN.
[2020-12-29 20:07] VITALS: BP 135/72
[2020-12-30] MEDS: TEMAZEPAM 7.5 MG CAPSULE PO PRN ×2 (00:42→21:10)
--- NOTE | 2020-12-30 00:45 | NUR ---
GPS RN NOTE: PATIENT REQUESTING FOR MEDICATION FOR SLEEP, RESTORIL 7.5MG 1 TAB ORAL GIVEN PER MD ORDER. WILL CONTINUE TO MONITOR THROUGHOUT SHIFT.
[2020-12-30] MEDS: CHLORDIAZEPOXIDE HCL 25 MG CAPSULE PO SCH (04:55)
[2020-12-30 08:00] VITALS: BP_SYST 115; BP_SYST 126; BP_DIAS 66; BP_DIAS 75
[2020-12-30] MEDS: FOLIC ACID 1 MG TABLET PO SCH (09:54)
[2020-12-30] MEDS: THIAMINE HCL 100 MG TABLET PO SCH (09:54)
[2020-12-30] MEDS: PANTOPRAZOLE 40 MG TABLET.DR PO SCH (09:54)
--- NOTE | 2020-12-30 12:30 | NUR ---
DR. GOLDSMITH HERE LIBRIUM FREQ. CHANGED PT. STATES DOES NOT FEEL GOOD.
[2020-12-30] MEDS: Z GUARD REMEDY 2 OZ OINT TP SCH ×2 (13:24→20:49)
[2020-12-30] MEDS: SERTRALINE HCL 25 MG TABLET PO SCH (13:28)
[2020-12-30] MEDS: CHLORDIAZEPOXIDE HCL 25 MG CAPSULE PO PRN (13:28)
[2020-12-30] MEDS: SULFAMETH/TRIMETH 800/160 MG 1 UDTAB TABLET PO SCH ×2 (13:28→20:49)
--- NOTE | 2020-12-30 13:28 | NUR ---
GIVEN LIBRIUM FOR ANXIOUSNESS.
[2020-12-30 16:00] VITALS: BP 119/75
--- NOTE | 2020-12-30 16:20 | NUR ---
Family Contact: SW called the pts , Dr. Nighat Thurston [phone], and left a voicemail stating that she would like to discuss the pts treatment plan.
--- NOTE | 2020-12-30 18:48 | NUR ---
MULTIPLE REQUESTS,VERY NEEDY.
[2020-12-30] MEDS ORDERED: SULFAMETH/TRIMETH 800/160 MG 1 UDTAB TABLET PO SCH (21:00)
--- NOTE | 2020-12-30 21:11 | NUR ---
GPS-RN NOTES: INSOMNIA PATIENT C/O INABILITY TO SLEEP. PRN RESTORIL 7.5MG PO GIVEN. WILL CONTINUE TO MONITOR.
[2020-12-30] MEDS: hydrOXYzine PAMOATE 25 MG CAPSULE PO PRN (23:16)
--- NOTE | 2020-12-30 23:17 | NUR ---
GPS-RN NOTES: ANXIETY PATIENT C/O FEELING ANXIOUS. PRN VISTARIL PO GIVEN. WILL CONTINUE TO MONITOR FOR PATIENT'S SAFETY.
[2020-12-31 08:00] VITALS: BP 122/74
--- NOTE | 2020-12-31 08:41 | NUR ---
WOUND CARE CONSULT: PT SEEN FOR INNER BUTTOCK RASH. RECOMMENDATIONS MADE FOR SKIN PROTECTION. DISCUSSED WITH NURSING STAFF. MD IN AGREEMENT WITH PLAN OF CARE.
[2020-12-31] MEDS: FOLIC ACID 1 MG TABLET PO SCH (09:25)
[2020-12-31] MEDS: SULFAMETH/TRIMETH 800/160 MG 1 UDTAB TABLET PO SCH ×2 (09:25→20:38)
[2020-12-31] MEDS: THIAMINE HCL 100 MG TABLET PO SCH (09:25)
[2020-12-31] MEDS: PANTOPRAZOLE 40 MG TABLET.DR PO SCH (09:25)
[2020-12-31] MEDS: Z GUARD REMEDY 2 OZ OINT TP SCH ×2 (09:42→20:38)
--- NOTE | 2020-12-31 10:20 | NUR ---
Family Contact: SW called the pts , Dr. Nighat Thurston [phone], and left a voicemail stating that she would like to discuss the pts treatment plan.
--- NOTE | 2020-12-31 10:21 | NUR ---
Family Contact: Pts , Dr. Nighat Thurston ([phone]), called the SW and the treatment plan was discussed. SW stated that the pts MD recommended a treatment center for the pt yesterday or home with an intensive outpatient program. SW stated that the pt stated that he preferred to go home but the pts stated that she does not want him home because he will fall back into the same pattern. SW stated that she will refer the pt and keep her updated on the treatment.
[2020-12-31] MEDS: CLOTRIMAZOLE 1% 15 GM TUBE TP SCH ×2 (12:31→16:23)
[2020-12-31] MEDS: SERTRALINE HCL 25 MG TABLET PO SCH (12:31)
[2020-12-31] MEDS: hydrOXYzine PAMOATE 25 MG CAPSULE PO PRN ×2 (12:55→22:40)
--- NOTE | 2020-12-31 12:55 | NUR ---
given vistaril for anxiety.
[2020-12-31 16:00] VITALS: BP 125/76
[2020-12-31] MEDS: CHLORDIAZEPOXIDE HCL 25 MG CAPSULE PO PRN (17:56)
--- NOTE | 2020-12-31 17:56 | NUR ---
GIVEN LIBRIUM FOR NERVES.
[2020-12-31 20:29] VITALS: BP 129/76
[2020-12-31] MEDS: TEMAZEPAM 7.5 MG CAPSULE PO PRN (20:38)
[2021-01-01 08:00] VITALS: BP 129/64
[2021-01-01] MEDS: THIAMINE HCL 100 MG TABLET PO SCH (08:20)
[2021-01-01] MEDS: PANTOPRAZOLE 40 MG TABLET.DR PO SCH (08:20)
[2021-01-01] MEDS: FOLIC ACID 1 MG TABLET PO SCH (08:20)
[2021-01-01] MEDS: SULFAMETH/TRIMETH 800/160 MG 1 UDTAB TABLET PO SCH ×2 (08:20→20:54)
[2021-01-01] MEDS: Z GUARD REMEDY 2 OZ OINT TP SCH ×2 (08:24→20:54)
[2021-01-01] MEDS: CLOTRIMAZOLE 1% 15 GM TUBE TP SCH ×2 (08:25→17:11)
[2021-01-01] MEDS: hydrOXYzine PAMOATE 25 MG CAPSULE PO PRN (09:08)
--- NOTE | 2021-01-01 09:10 | NUR ---
RN-NOTES PATIENT REQUESTING ANXIETY MEDICATION. VISTARIL 25MG P.O GIVEN PRN ORDER. WILL CONT. MONITORING FOR SAFETY AND BEHAVIOR.
--- NOTE | 2021-01-01 10:10 | NUR ---
RN-NOTES PATIENT LYING IN BED AWAKE,ALERT CALM,NO ACUTE DISTRESS NOTED.
[2021-01-01] MEDS ORDERED: CHLORDIAZEPOXIDE HCL 25 MG CAPSULE PO PRN (10:30)
[2021-01-01] MEDS: SERTRALINE HCL 25 MG TABLET PO SCH (12:37)
--- NOTE | 2021-01-01 14:37 | NUR ---
[facility]: JERILYN faxed a referral to [facility] with attn to Radha: [phone].
[2021-01-01 16:00] VITALS: BP 126/79
[2021-01-01 20:28] VITALS: BP 127/73
[2021-01-01] MEDS: TEMAZEPAM 7.5 MG CAPSULE PO PRN (22:07)
--- NOTE | 2021-01-01 22:08 | NUR ---
RN NOTES: INSOMNIA PT. C/O UNABLE TO SLEEP , RESTORIL 7.5 MG PO PRN GIVEN PER PT. REQUEST, WILL CONTINUE TO MONITOR.
[2021-01-02] MEDS: hydrOXYzine PAMOATE 25 MG CAPSULE PO PRN ×2 (03:46→19:28)
--- NOTE | 2021-01-02 03:50 | NUR ---
RN NOTES: ANXIETY PATIENT C/O FEELING ANXIOUS. PRN VISTARIL 25MG PO GIVEN. WILL CONTINUE TO MONITOR FOR PATIENT'S SAFETY.
[2021-01-02] MEDS: PANTOPRAZOLE 40 MG TABLET.DR PO SCH (07:55)
[2021-01-02 08:00] VITALS: BP 137/87
[2021-01-02] MEDS: SULFAMETH/TRIMETH 800/160 MG 1 UDTAB TABLET PO SCH ×2 (08:05→20:35)
[2021-01-02] MEDS: THIAMINE HCL 100 MG TABLET PO SCH (08:05)
[2021-01-02] MEDS: FOLIC ACID 1 MG TABLET PO SCH (08:05)
[2021-01-02] MEDS: Z GUARD REMEDY 2 OZ OINT TP SCH ×2 (08:31→20:35)
[2021-01-02] MEDS: CLOTRIMAZOLE 1% 15 GM TUBE TP SCH ×2 (08:31→17:03)
--- NOTE | 2021-01-02 11:04 | NUR ---
Family Contact: SW called the pts , Dr. Nighat Thurston [phone], and left a voicemail stating that she would like to discuss the pts probable cause hearing and the pts treatment plan.
[2021-01-02] MEDS: SERTRALINE HCL 25 MG TABLET PO SCH ×2 (12:05→13:00)
--- NOTE | 2021-01-02 13:54 | NUR ---
RN-NOTES ZOLOFT 75MG P.O NOT GIVEN DUE TO ZOLOFT 50MG P.O WAS GIVEN EARLIER. DR. AGUAYO IN THE UNIT AND WAS AWARE.
--- NOTE | 2021-01-02 14:15 | NUR ---
Probable Cause Hearing: Pts 5250 hold was not upheld for danger to self and the pt signed voluntary.
--- NOTE | 2021-01-02 14:48 | NUR ---
Family Contact: SW called the pts , Dr. Nighat Thurston [phone], and informed her that the pts hold was not upheld and that he signed voluntary.
[2021-01-02 16:00] VITALS: BP 119/69
--- NOTE | 2021-01-02 19:28 | NUR ---
RN NOTES: ANXIETY PATIENT C/O FEELING ANXIOUS. PRN VISTARIL 25MG PO GIVEN. WILL CONTINUE TO MONITOR FOR PATIENT'S SAFETY.
[2021-01-02 20:22] VITALS: BP 130/82
[2021-01-02] MEDS: ACETAMINOPHEN 325 MG TABLET PO PRN (21:02)
[2021-01-02] MEDS: TEMAZEPAM 7.5 MG CAPSULE PO PRN (22:35)
--- NOTE | 2021-01-02 22:36 | NUR ---
RN NOTES: INSOMNIA PT. C/O UNABLE TO SLEEP , RESTORIL 7.5 MG PO PRN GIVEN PER PT. REQUEST, WILL CONTINUE TO MONITOR.
[2021-01-03 06:41] LABS: CALCIUM, SERUM 9.4 mg/dL (8.5-10.1); CREATININE 1.1 mg/dL (0.6-1.3)
[2021-01-03 08:00] VITALS: BP 119/71
[2021-01-03] MEDS: PANTOPRAZOLE 40 MG TABLET.DR PO SCH (08:20)
[2021-01-03] MEDS: SULFAMETH/TRIMETH 800/160 MG 1 UDTAB TABLET PO SCH ×2 (08:20→21:05)
[2021-01-03] MEDS: FOLIC ACID 1 MG TABLET PO SCH (08:20)
[2021-01-03] MEDS: THIAMINE HCL 100 MG TABLET PO SCH (08:20)
[2021-01-03] MEDS: Z GUARD REMEDY 2 OZ OINT TP SCH ×2 (09:15→21:07)
[2021-01-03] MEDS: CLOTRIMAZOLE 1% 15 GM TUBE TP SCH ×2 (09:15→17:21)
[2021-01-03] MEDS ORDERED: CHLORDIAZEPOXIDE HCL 25 MG CAPSULE PO PRN (11:00)
[2021-01-03] MEDS: SERTRALINE HCL 25 MG TABLET PO SCH (13:17)
--- NOTE | 2021-01-03 15:03 | NUR ---
RN-NOTES PATIENT REQUESTING LIBRIUM STATED" I NEED IT,I DON'T WANT TO THINK ANYMORE". REDIRECTED PATIENT AND LIBRIUM 25MG P.O GIVEN PRN ORDER. WILL CONT. MONITORING FOR SAFETY AND BEHAVIOR.
[2021-01-03 16:00] VITALS: BP 130/77
[2021-01-03 19:55] VITALS: BP 135/83
[2021-01-03 20:00] VITALS: BP 135/83
[2021-01-03] MEDS: MIRTAZAPINE 15 MG TABLET PO SCH (21:05)
--- NOTE | 2021-01-04 06:50 | NUR ---
NURSES NOTES: PATIENT AWAKE IN HIS ROOM, APPEARS IN A GOOD, HAPPY MOOD AT THIS TIME, ALL DRESSED NEAT AND CLEAN. NO COMPLAINS OF PAIN OR DISCOMFORT. WILL ENDORSE PATIENT'S CARE TO DAY SHIFT NURSE.
[2021-01-04] MEDS: PANTOPRAZOLE 40 MG TABLET.DR PO SCH (07:30)
[2021-01-04 08:00] VITALS: BP 129/85
[2021-01-04] MEDS: FOLIC ACID 1 MG TABLET PO SCH (09:17)
[2021-01-04] MEDS: Z GUARD REMEDY 2 OZ OINT TP SCH ×2 (09:17→21:17)
[2021-01-04] MEDS: SULFAMETH/TRIMETH 800/160 MG 1 UDTAB TABLET PO SCH ×2 (09:17→21:16)
[2021-01-04] MEDS: THIAMINE HCL 100 MG TABLET PO SCH (09:17)
[2021-01-04] MEDS: CLOTRIMAZOLE 1% 15 GM TUBE TP SCH ×2 (09:21→19:22)
[2021-01-04] MEDS: hydrOXYzine PAMOATE 25 MG CAPSULE PO PRN ×2 (10:10→19:31)
[2021-01-04] MEDS: SERTRALINE HCL 25 MG TABLET PO SCH (13:08)
[2021-01-04 16:00] VITALS: BP 110/73
--- NOTE | 2021-01-04 19:31 | NUR ---
RN NOTES: ANXIETY PATIENT C/O FEELING ANXIOUS. PRN VISTARIL 25MG PO GIVEN. WILL CONTINUE TO MONITOR FOR PATIENT'S SAFETY.
[2021-01-04 20:00] VITALS: BP 127/76
[2021-01-04] MEDS: ACETAMINOPHEN 325 MG TABLET PO PRN (21:00)
--- NOTE | 2021-01-04 21:49 | NUR ---
RN NOTES: PT. REFUSED WEEKLY SKIN REASSESSMENT AND PICTURES, ENCOURAGED X3 RISKS AND BENEFITS EXPLINED , PT.STILL REFUSED ,PER PT. MY SKIN IS FINE, WILL CONTINUE WITH PLAN OF CARE.
[2021-01-04] MEDS: MIRTAZAPINE 15 MG TABLET PO SCH (22:21)
[2021-01-05 08:00] VITALS: BP 128/72
[2021-01-05] MEDS: PANTOPRAZOLE 40 MG TABLET.DR PO SCH (08:44)
[2021-01-05] MEDS: THIAMINE HCL 100 MG TABLET PO SCH (08:44)
[2021-01-05] MEDS: SULFAMETH/TRIMETH 800/160 MG 1 UDTAB TABLET PO SCH ×2 (08:44→20:48)
[2021-01-05] MEDS: FOLIC ACID 1 MG TABLET PO SCH (08:44)
[2021-01-05] MEDS: hydrOXYzine PAMOATE 25 MG CAPSULE PO PRN ×2 (09:03→17:50)
[2021-01-05] MEDS: Z GUARD REMEDY 2 OZ OINT TP SCH ×2 (09:14→20:52)
[2021-01-05] MEDS: CLOTRIMAZOLE 1% 15 GM TUBE TP SCH ×2 (09:14→16:58)
--- NOTE | 2021-01-05 11:45 | NUR ---
[facility]: JERILYN called Radha ([phone]. [phone]) at [facility] to follow up on the referral that was sent for the pt. She stated that due to the pts insurance Medicare only pays for the detox which the pt has already done and if he had Medi-khurram then he could have received more assistance.
--- NOTE | 2021-01-05 11:53 | NUR ---
Family Contact: SW called the pts , Dr. Nighat Thurston ([phone]), and was unable to make contact at this time.
[2021-01-05] MEDS: SERTRALINE HCL 25 MG TABLET PO SCH (12:38)
--- NOTE | 2021-01-05 14:28 | NUR ---
SNF Referral: SW faxed a referral to the following two facilities: [facility] with attn to Krystal to the fax number: [phone] [facility] with attn to Cadence to the fax number: [phone].
[2021-01-05 16:00] VITALS: BP 123/83
[2021-01-05 20:00] VITALS: BP 139/77
[2021-01-05] MEDS: MIRTAZAPINE 15 MG TABLET PO SCH (21:06)
[2021-01-06] MEDS: hydrOXYzine PAMOATE 25 MG CAPSULE PO PRN ×2 (04:39→12:23)
--- NOTE | 2021-01-06 04:41 | NUR ---
rn note- awake with anxiety pt verbalizes having anxiety at this time. prn vistaril 25mg PO administered as ordered. will continue to monitor closely
[2021-01-06 08:00] VITALS: BP 121/84
--- NOTE | 2021-01-06 09:00 | NUR ---
RECEIVED PT. IN AM,VERBALIZED DISAPPOINTED,JUST FOUND OT PLANS TO DIVORCE HIM.
[2021-01-06] MEDS: FOLIC ACID 1 MG TABLET PO SCH (09:02)
[2021-01-06] MEDS: SULFAMETH/TRIMETH 800/160 MG 1 UDTAB TABLET PO SCH (09:02)
[2021-01-06] MEDS: PANTOPRAZOLE 40 MG TABLET.DR PO SCH (09:02)
[2021-01-06] MEDS: THIAMINE HCL 100 MG TABLET PO SCH (09:02)
[2021-01-06] MEDS: CLOTRIMAZOLE 1% 15 GM TUBE TP SCH (09:03)
[2021-01-06] MEDS: Z GUARD REMEDY 2 OZ OINT TP SCH (09:03)
--- NOTE | 2021-01-06 09:25 | NUR ---
SNF Contact: Cadence ([phone]) from [facility] contacted the SW and stated that the pt was accepted to their facility.
--- NOTE | 2021-01-06 09:25 | NUR ---
Family Contact: SW called the pts , Dr. Nighat Thurston ([phone]), and was unable to make contact at this time as the dial tone stated that the person is not receiving calls at this time.
[2021-01-06] MEDS ORDERED: SERTRALINE HCL 50 MG TABLET PO SCH (13:00)
--- NOTE | 2021-01-06 13:31 | NUR ---
Family Contact: SW called the pts , Dr. Nighat Thurston ([phone]), and left a voicemail stating that the SW needs to speak with her regarding the pts treatment.
--- NOTE | 2021-01-06 14:52 | NUR ---
REFUSING DISCHARGE PHOTOS
--- NOTE | 2021-01-06 15:04 | NUR ---
Discharge Note: The pt currently [place] [address] [facility] [address]; [phone] with his , Nighat Thurston ([phone]). Pt will be discharged via [employer]. Upon discharge, pt appears to be in a dysphoric mood and presents with a distressed affect. Pt appears to be alert and oriented x4 (time, place, self, and situation). Pt denies both suicidal and homicidal ideation as well as auditory and visual hallucinations. SW provided Pt will continue to be under the care of his glucose and syrup weigher, [place]. [place], [place] [address] [place] [address]; . Pt will be under the care of his psychiatrist, [place], [place] [address] [place] [address]; . Pts multidisciplinary exit care form was done, printed, signed, and given to the patient.
[2021-01-06 16:00] VITALS: BP 130/76
--- NOTE | 2021-01-06 16:15 | NUR ---
RECEIVED DC ORDERS FROM DR. AGUAYO WELL PRESCRIPTIONS.IP ARCHITECT CALLED IN RXS TO PT'[facility].INSTRUCTED PT. WELL TO CONSULT HUMANITIES DEPARTMENT CHAIR RE;FOLIC ACID AND THIAMINE MED AND TO GET OTC PROTONIX.ADDITIONALLY AWARE TO CALL SO IF ANY PROBLEMS OR NEED FOR ADMIT TO SNF FACILITY.AT THIS TIME DENIES S/I,H/I,AUDITORY OR VISUAL HALLUCINATIONS.PT. DID TAKE BELONGINGS INCLUDING [employer] CROSS AND CHAIN WELL CELL PHONE.ALL PAPERWORK SIGNED AND GIVEN PAPERWORK AND TAKEN TO LOBBY BY COLLECTION MANAGER ESCORT TO CALL [employer] TO GO HOME TO .
== END 2021-01-06 16:10 | disposition home or self-care (01) | DRG 885 ==
LOC: GPS 17:28
PROVIDERS: ADMIT Psychiatry & Neurology Psychiatry; ATTEND Internal Medicine
DX: F33.3 Major depressive disorder, recurrent, severe with psychotic symptoms (principal); R45.851 Suicidal ideations; E87.1 Hypo-osmolality and hyponatremia; N39.0 Urinary tract infection, site not specified; F23 Brief psychotic disorder; E78.5 Hyperlipidemia, unspecified; B96.20 Unspecified Escherichia coli [E. coli] as the cause of diseases classified elsewhere; E87.6 Hypokalemia; I10 Essential (primary) hypertension; Z73.6 Limitation of activities due to disability; F41.8 Other specified anxiety disorders; M62.81 Muscle weakness (generalized); F41.9 Anxiety disorder, unspecified; F10.20 Alcohol dependence, uncomplicated; F17.210 Nicotine dependence, cigarettes, uncomplicated; Z71.6 Tobacco abuse counseling; F29 Unspecified psychosis not due to a substance or known physiological condition; F12.90 Cannabis use, unspecified, uncomplicated
CPT/HCPCS: 36415; 71045-TC; 80048-TC; 80053-TC; 80061-TC; 81001; 82962-TC; 85025-TC; 87086-TC; 87186-TC; 97116-TC; 97530-TC; Q0177

== ENCOUNTER 2022-03-15 11:52 | Emergency (ER) | payer MEDICARE ==
[~2022-03-15] VITALS: Ht 177.8 cm; Wt 82.6 kg
[~2022-03-15 11:52] MED LIST changes: -DEXT15CA PO; -GABA-534 PO; -MIRT15TA7 PO; -PROP20TA7 PO; +SILV20CR13 TP; +TRAZ-257 PO; +VANC1PLA9 IV
[2022-03-15 12:45] VITALS: BP 140/88
--- NOTE | 2022-03-15 12:45 | NUR ---
BIBS, REQUESTED FOR MIDLINE PLACEMENT FOR IV ANTIBIOTICS. TO ER BED 9.
--- NOTE | 2022-03-15 13:09 | NUR ---
DR CAREY AT BEDSIDE FOR MIDLINE PLACEMENT
--- NOTE | 2022-03-15 13:49 | NUR ---
Patient discharged to home in stable condition. Written and verbal after care instructions given. Patient verbalizes understanding of instruction.
[2022-03-25] MEDS ORDERED: OLME20TA13 PO (08:02)
== END 2022-03-15 13:51 | disposition home or self-care (01) ==
LOC: ER 11:54
DX: L03.116 Cellulitis of left lower limb (principal); I10 Essential (primary) hypertension; E78.5 Hyperlipidemia, unspecified; Z79.899 Other long term (current) drug therapy

== ENCOUNTER 2023-05-04 10:58 | Inpatient (IN) | payer BC, MEDICARE ==
[~2023-05-04] VITALS: Ht 172.7 cm; Wt 83.9 kg
[~2023-05-04 10:58] MED LIST changes: +OLME20TA13 PO
[2023-05-04] MEDS ORDERED: IPRATROPIUM NEB FS 0.5 MG/2.5 ML AMPUL.NEB NEB ONE (12:00)
[2023-05-04] MEDS ORDERED: ALBUTEROL FS 2.5 MG/3 ML VIAL.NEB NEB ONE (12:00)
[2023-05-04] MEDS ORDERED: methylPREDNISolone SOD SUCC 125 MG/2ML VIAL IV ONE (12:00)
[2023-05-04] MEDS ORDERED: Magnesium 1GM/D5W 100ML PREMIX 200 ML IV ONE (12:00)
[2023-05-04] MEDS ORDERED: methylPREDNISolone SOD SUCC 125 MG/2ML VIAL ONE (12:02)
[2023-05-04] MEDS ORDERED: Magnesium 1GM/D5W 100ML PREMIX 100 ML IV ONE (12:02)
[2023-05-04 12:09] LABS: BASOPHILS % (AUTO) 0.4 % (0.0-2.0); EOSINOPHILS % (AUTO) 0.3 % (0.0-6.0); HEMATOCRIT 54 % (39-51); LYMPHOCYTES # (AUTO) 0.6 K/uL (0.8-4.8); LYMPHOCYTES % (AUTO) 6.1 % (20.0-44.0); MEAN CORPUSCULAR HEMOGLOBIN 32 PG (26.0-33.0); MEAN CORPUSCULAR HGB CONC 34 g/dl (31.0-36.0); MEAN CORPUSCULAR VOLUME 95 fL (80-96); MONOCYTES % (AUTO) 9.5 % (2.0-12.0); NEUTROPHILS # (AUTO) 8.5 K/uL (1.8-8.9); NEUTROPHILS % (AUTO) 83.7 % (43.0-81.0); PLATELET COUNT (AUTO) 258 K/uL (150-450); RED BLOOD CELL COUNT(AUTO) 5.67 MIL/uL (4.5-6.0); RED CELL DISTRIBUTION WIDTH 14.4 % (11.5-15.0); WHITE BLOOD COUNT (AUTO) 10.2 K/uL (4.3-11.0)
[2023-05-04 12:17] VITALS: O2SAT 97
[2023-05-04] MEDS ORDERED: ALBUTEROL FS 2.5 MG/3 ML VIAL.NEB ONE (12:17)
[2023-05-04] MEDS ORDERED: IPRATROPIUM NEB FS 0.5 MG/2.5 ML AMPUL.NEB ONE (12:17)
[2023-05-04] MEDS ORDERED: OLME20TA13 PO (12:33)
[2023-05-04 12:35] LABS: ALANINE AMINOTRANSFERASE 31 U/L (12-78); ALBUMIN 3.8 g/dL (3.4-5.0); ALKALINE PHOSPHATASE 52 U/L (46-116); ASPARTATE AMINOTRANSFERASE 29 U/L (15-37); BILIRUBIN,DIRECT 0.4 mg/dL (0.0-0.2); BILIRUBIN,TOTAL 0.5 mg/dL (0.2-1.0); CALCIUM, SERUM 9.3 mg/dL (8.5-10.1); CARBON DIOXIDE 25 mmol/L (21-32); CHLORIDE 101 mmol/L (98-107); CREATININE 1.1 mg/dL (0.6-1.3); GLUCOSE 94 mg/dL (74-106); POTASSIUM 4.2 mmol/L (3.5-5.1); SODIUM SERUM 136 mmol/L (136-145); TOTAL PROTEIN, SERUM 7.7 g/dL (6.4-8.2); UREA NITROGEN, BLOOD 8 mg/dL (7-18)
[2023-05-04 12:48] VITALS: O2SAT 97
[2023-05-04 13:14] LABS: LYMPHOCYTES % (MANUAL) 9 % (16-48); MONOCYTES % (MANUAL) 9 % (0-11.0); NEUTROPHILS % (MANUAL) 82 (42-76)
[2023-05-04 13:15] LABS: ANISOCYTOSIS 1+; PLATELET ESTIMATE ADEQUATE
[2023-05-04 14:19] LABS: LACTIC ACID 2.6 mmol/L (0.4-2.0)
[2023-05-04] MEDS ORDERED: LEVOFLOXACIN 500 MG /D5W 100ML 500 MG in PREMIX 1 EA IV SCH (15:00)
[2023-05-04] MEDS ORDERED: MAG HYDROX/AL HYDROX/SIMETH 30 ML UDC PO PRN (15:00)
[2023-05-04] MEDS ORDERED: Z GUARD REMEDY 4 OZ OINT TP PRN (15:00)
[2023-05-04] MEDS ORDERED: MAGNESIUM HYDROXIDE 30 ML UDC PO PRN (15:00)
[2023-05-04] MEDS ORDERED: ZOLPIDEM TARTRATE 5 MG TABLET PO PRN (15:00)
[2023-05-04] MEDS ORDERED: ACETAMINOPHEN 325 MG TABLET PO PRN (15:00)
[2023-05-04] MEDS ORDERED: ALBUTEROL FS 2.5 MG/3 ML VIAL.NEB NEB PRN (15:00)
[2023-05-04] MEDS ORDERED: BUPRENORPHINE HCL 2 MG TAB.SUBL SL PRN (15:00)
[2023-05-04] MEDS ORDERED: LORAZEPAM INJ 2 MG/ML VIAL IV PRN (15:00)
[2023-05-04] MEDS ORDERED: IPRATROPIUM NEB FS 0.5 MG/2.5 ML AMPUL.NEB NEB PRN (15:00)
[2023-05-04] MEDS ORDERED: ONDANSETRON HCL/PF 4 MG/2 ML VIAL IVP PRN (15:00)
[2023-05-04] MEDS ORDERED: Thiamine 100 MG in IV D5W 50 ML IV SCH (15:00)
[2023-05-04] MEDS ORDERED: IV NS 0.9% 1,000 ML IV ONE ×2 (15:30→16:00)
[2023-05-04] MEDS ORDERED: CEFTRIAXONE 1GM BAG (ER ONLY) 50 ML IV ONE (15:30)
[2023-05-04] MEDS ORDERED: AZITHROMYCIN 500 MG in IV D5W 250 ML IV ONE (15:30)
[2023-05-04 16:00] VITALS: BP 158/97; TEMP 98.9; O2SAT 97
[2023-05-04] MEDS ORDERED: IV NS 0.9% 1,000 ML BAG IV ONE (16:00)
[2023-05-04] MEDS ORDERED: IV NS 0.9% 500 ML BAG IV ONE (16:00)
[2023-05-04 18:30] VITALS: BP 170/100
[2023-05-04] MEDS: LOSARTAN POTASSIUM 50 MG TABLET PO PRN (18:38)
[2023-05-04 20:00] VITALS: BP 168/98; TEMP 99; O2SAT 97
[2023-05-04] MEDS: methylPREDNISolone SOD SUCC 125 MG/2ML VIAL IV SCH (21:52)
[2023-05-05] MEDS: methylPREDNISolone SOD SUCC 125 MG/2ML VIAL IV SCH (04:18)
[2023-05-05 06:02] LABS: BASOPHILS % (AUTO) 0.2 % (0.0-2.0); HEMATOCRIT 50 % (39-51); HEMOGLOBIN 16.6 g/dL (13.5-17.5); LYMPHOCYTES # (AUTO) 0.5 K/uL (0.8-4.8); LYMPHOCYTES % (AUTO) 7.1 % (20.0-44.0); MEAN CORPUSCULAR HEMOGLOBIN 32 PG (26.0-33.0); MEAN CORPUSCULAR HGB CONC 33 g/dl (31.0-36.0); MEAN CORPUSCULAR VOLUME 95 fL (80-96); MONOCYTES # (AUTO) 0.2 K/uL (0.1-1.30); MONOCYTES % (AUTO) 3.8 % (2.0-12.0); NEUTROPHILS # (AUTO) 5.7 K/uL (1.8-8.9); NEUTROPHILS % (AUTO) 88.9 % (43.0-81.0); PLATELET COUNT (AUTO) 231 K/uL (150-450); RED BLOOD CELL COUNT(AUTO) 5.25 MIL/uL (4.5-6.0); RED CELL DISTRIBUTION WIDTH 14.1 % (11.5-15.0); WHITE BLOOD COUNT (AUTO) 6.5 K/uL (4.3-11.0)
[2023-05-05 06:40] LABS: ALBUMIN 3.5 g/dL (3.4-5.0); BILIRUBIN,TOTAL 0.8 mg/dL (0.2-1.0); CALCIUM, SERUM 9.6 mg/dL (8.5-10.1); CREATININE 0.9 mg/dL (0.6-1.3); MAGNESIUM 2.6 mg/dL (1.8-2.4); PHOSPHORUS 3.3 mg/dL (2.5-4.9); POTASSIUM 4.3 mmol/L (3.5-5.1)
[2023-05-05 06:41] LABS: LACTIC ACID 1.1 mmol/L (0.4-2.0)
[2023-05-05 08:00] VITALS: BP 170/96; TEMP 98.6; O2SAT 95
[2023-05-05] MEDS ORDERED: PANTOPRAZOLE 40 MG VIAL IV SCH (09:00)
[2023-05-05 09:01] VITALS: BP 170/96
[2023-05-05] MEDS: LOSARTAN POTASSIUM 50 MG TABLET PO PRN (09:01)
[2023-05-05] MEDS ORDERED: IPRATROPIUM NEB FS 0.5 MG/2.5 ML AMPUL.NEB NEB SCH (10:00)
[2023-05-05] MEDS ORDERED: methylPREDNISolone SOD SUCC 125 MG/2ML VIAL IV SCH (10:00)
[2023-05-05] MEDS ORDERED: ALBUTEROL FS 2.5 MG/3 ML VIAL.NEB NEB SCH (10:00)
[2023-05-05] MEDS ORDERED: ALBUT2 NEB (10:54)
[2023-05-05] MEDS ORDERED: METH4TAB17 PO (10:54)
[2023-05-05] MEDS ORDERED: ALBU18HF2 INH (10:54)
[2023-05-05] MEDS ORDERED: PANT40TA2 PO (10:54)
[2023-05-05] MEDS ORDERED: IPRA0.2S9 NEB (10:54)
[2023-05-05] MEDS ORDERED: LEVO500T90 PO (10:54)
[2023-05-05] MEDS ORDERED: THIAMINE HCL 100 MG TABLET PO SCH (15:00)
== END 2023-05-05 12:45 | disposition home or self-care (01) | DRG 190 ==
LOC: ER 11:07 → TELE 14:04 → MED 05-05 02:21
PROVIDERS: ADMIT Nurse Practitioner Acute Care; ATTEND Nurse Practitioner Acute Care
DX: J44.1 Chronic obstructive pulmonary disease with (acute) exacerbation (principal); J96.01 Acute respiratory failure with hypoxia; E87.20 Acidosis, unspecified; J44.0 Chronic obstructive pulmonary disease with (acute) lower respiratory infection; J20.9 Acute bronchitis, unspecified; I10 Essential (primary) hypertension; E78.5 Hyperlipidemia, unspecified; F10.10 Alcohol abuse, uncomplicated; G89.4 Chronic pain syndrome; Z86.16 Personal history of COVID-19; D75.1 Secondary polycythemia; F41.9 Anxiety disorder, unspecified; F17.210 Nicotine dependence, cigarettes, uncomplicated; Z71.6 Tobacco abuse counseling
CPT/HCPCS: 36415; 71045-TC; 80048-TC; 80053-TC; 80076-TC; 83605-TC; 83735-TC; 83880; 84100-TC; 84484-TC; 85025-TC; 87040-TC; A4216; A4223; C9113; C9803; G0378; J0456; J1956; J2930; J3411; J3475; J7030; J7060

== ENCOUNTER 2023-06-30 10:22 | Emergency (ER) | payer BC, MEDICARE ==
[~2023-06-30] VITALS: Ht 175.3 cm; Wt 82.1 kg
[~2023-06-30 10:22] MED LIST changes: +ALBU18HF2 INH; +ALBUT2 NEB; +IPRA0.2S9 NEB; +LEVO500T90 PO; +METH4TAB17 PO; +PANT40TA2 PO; -SILV20CR13 TP; -TRAZ-257 PO; -VANC1PLA9 IV
[2023-06-30 11:31] LABS: ALANINE AMINOTRANSFERASE 89 U/L (12-78); ALBUMIN 3.1 g/dL (3.4-5.0); ALCOHOL, BLOOD 411 mg/dL (0-10); ALKALINE PHOSPHATASE 77 U/L (46-116); ASPARTATE AMINOTRANSFERASE 68 U/L (15-37); BILIRUBIN,DIRECT 0.3 mg/dL (0.0-0.2); BILIRUBIN,TOTAL 0.5 mg/dL (0.2-1.0); CALCIUM, SERUM 9.1 mg/dL (8.5-10.1); CARBON DIOXIDE 21 mmol/L (21-32); CHLORIDE 102 mmol/L (98-107); CREATININE 0.9 mg/dL (0.6-1.3); GLUCOSE 122 mg/dL (74-106); POTASSIUM 4.9 mmol/L (3.5-5.1); SALICYLATE 3.3 mg/dL (2.8-20.0); SODIUM SERUM 136 mmol/L (136-145); TOTAL PROTEIN, SERUM 7.4 g/dL (6.4-8.2); UREA NITROGEN, BLOOD 7 mg/dL (7-18)
[2023-06-30 11:33] LABS: ACETAMINOPHEN <10 ug/ml (10-30)
[2023-06-30 11:37] LABS: BILIRUBIN,URINE NEGATIVE (NEGATIVE); BLOOD, URINE 2+ Ery/uL (NEGATIVE); COLOR,URINE YELLOW (YELLOW); KETONES,URINE NEGATIVE (NEGATIVE); LEUKOCYTE ESTERASE ,URINE 3+ (NEGATIVE); NITRITE, URINE POSITIVE (NEGATIVE); PROTEIN,URINE TRACE mg/dl (NEGATIVE); UGLUCOSE NEGATIVE (NEGATIVE); UROBILINOGEN,URINE 0.2 EU/dL (0.2)
[2023-06-30 11:38] LABS: APPEARANCE,URINE SLIGHTLY CLOUDY (CLEAR)
[2023-06-30 11:50] LABS: AMPHETAMINE, URINE NEGATIVE (NEGATIVE); BARBITURATE, URINE NEGATIVE (NEGATIVE); BENZODIAZEPINE, URINE NEGATIVE (NEGATIVE); CANNABINOID, URINE NEGATIVE (NEGATIVE); COCCAINE, URINE NEGATIVE (NEGATIVE); OPIATE, URINE NEGATIVE (NEGATIVE); PHENCYCLIDINE SCREEN,URINE NEGATIVE (NEGATIVE)
[2023-06-30 11:53] LABS: BASOPHILS # (AUTO) 0.1 K/uL (0.0-0.2); BASOPHILS % (AUTO) 0.7 % (0.0-2.0); HEMATOCRIT 53 % (39-51); HEMOGLOBIN 17.8 g/dL (13.5-17.5); LYMPHOCYTES % (AUTO) 11.4 % (20.0-44.0); MEAN CORPUSCULAR HEMOGLOBIN 31 PG (26.0-33.0); MEAN CORPUSCULAR HGB CONC 33 g/dl (31.0-36.0); MEAN CORPUSCULAR VOLUME 92 fL (80-96); MONOCYTES % (AUTO) 11.5 % (2.0-12.0); NEUTROPHILS # (AUTO) 6.7 K/uL (1.8-8.9); NEUTROPHILS % (AUTO) 76.4 % (43.0-81.0); PLATELET COUNT (AUTO) 160 K/uL (150-450); RED BLOOD CELL COUNT(AUTO) 5.78 MIL/uL (4.5-6.0); RED CELL DISTRIBUTION WIDTH 15.1 % (11.5-15.0); WHITE BLOOD COUNT (AUTO) 8.8 K/uL (4.3-11.0)
[2023-06-30 11:58] LABS: ADD URINE CULTURE YES; BACTERIA,URINE Many /HPF (None Seen)
[2023-06-30 11:59] LABS: SQUAMOUS EPITHELIAL CELL,UR Few /HPF (None Seen)
[2023-06-30] MEDS ORDERED: CIPR-262 PO (15:12)
[2023-06-30] MEDS ORDERED: CIPROFLOXACIN HCL 250 MG TABLET PO ONE (17:00)
[2023-06-30] MEDS ORDERED: CIPROFLOXACIN HCL 500 MG TABLET ONE (17:08)
[2023-06-30] MEDS ORDERED: LORAZEPAM INJ 2 MG/ML VIAL ONE ×2 (17:17→17:21)
[2023-06-30] MEDS ORDERED: CHLO25CA22 PO (17:29)
[2023-06-30] MEDS ORDERED: LORAZEPAM INJ 2 MG/ML VIAL IV ONE (17:30)
[2023-06-30] MEDS ORDERED: LORAZEPAM INJ 2 MG/ML VIAL IM ONE (17:30)
[2023-06-30 17:45] VITALS: BP 155/99; TEMP 98.4; O2SAT 97
== END 2023-06-30 17:45 | disposition home or self-care (01) ==
LOC: ER 10:28
DX: F10.129 Alcohol abuse with intoxication, unspecified (principal); N39.0 Urinary tract infection, site not specified; E78.5 Hyperlipidemia, unspecified; R51.9 Headache, unspecified; F17.200 Nicotine dependence, unspecified, uncomplicated; Z79.899 Other long term (current) drug therapy; Y90.8 Blood alcohol level of 240 mg/100 ml or more; W19.XXXA Unspecified fall, initial encounter; Y93.89 Activity, other specified; Y92.89 Other specified places as the place of occurrence of the external cause; Y99.8 Other external cause status
CPT/HCPCS: 99285; 96372; 73030; 72125; 70450; 70486; 85025; 80048; 87086; 80076; 81001; 36415; 80143; 80320; 80307; J2060; G0480